=== PATIENT | female | born 1960 | race Caucasian/White ===

== ENCOUNTER → 2018-02-17 | Outpatient (CLI) | payer OTHER ==
--- NOTE | 2018-02-24 11:27 | MM ---
Reason for exam: screening (asymptomatic). Last mammogram was performed 7 years ago. History: Family history of breast cancer in aunt and premenopausal breast cancer in mother at age 45. Physical Findings: A clinical breast exam by your physician is recommended on an annual basis and results should be correlated with mammographic findings. MG 3D Screening Mammo W/Cad Bilateral CC and MLO view(s) were taken. XCCL view(s) were taken of the left breast. Prior study comparison: February 04, 2011, bilateral digital screening mammo w/CAD. February 21, 2009, left breast mammogram dig work up. There are scattered fibroglandular densities. New heterogeneous group of calcifications with some associated vague density lateral periareolar right breast. ASSESSMENT: Incomplete: need additional imaging evaluation, BI-RAD 0 RECOMMENDATION: Special view mammogram and ultrasound of the right breast. [facility] will attempt to contact patient to return for supplemental views and ultrasound.
== END | disposition home or self-care (01) ==
LOC: RADMAMWWP 10:36
PROVIDERS: ATTEND Internal Medicine
DX: Z12.31 Encounter for screening mammogram for malignant neoplasm of breast (principal); R92.8 Other abnormal and inconclusive findings on diagnostic imaging of breast
CPT/HCPCS: 77063; 77067

== ENCOUNTER → 2018-03-16 | Outpatient (CLI) | payer OTHER ==
--- NOTE | 2018-03-17 08:22 | MM ---
Reason for exam: additional evaluation requested from abnormal screening. Last mammogram was performed 1 month ago. History: Patient is postmenopausal. Family history of breast cancer in aunt and premenopausal breast cancer in mother at age 45. Took hormonal contraceptives beginning at age 17. Physical Findings: Nurse Summary: 1cm nodule in the right breast at 9 o'clock (nurse audie). MG 3D Work Up W/Cad RT Spot compression CC, spot compression LM, and LM view(s) were taken of the right breast. Prior study comparison: February 17, 2018, bilateral MG 3d screening mammo w/cad. February 04, 2011, bilateral digital screening mammo w/CAD. There are scattered fibroglandular densities. Large group of new heterogeneous calcifications anterior lower outer quadrant right breast. Palpable marker near this location. These results were verbally communicated with the patient and result sheet given to the patient on 03/16/18. ASSESSMENT: Incomplete: need additional imaging evaluation, BI-RAD 0 RECOMMENDATION: Ultrasound of the right breast.
--- NOTE | 2018-03-17 08:25 | USB ---
Reason for exam: additional evaluation requested from abnormal screening. History: Patient is postmenopausal. Family history of breast cancer in aunt and premenopausal breast cancer in mother at age 45. Took hormonal contraceptives beginning at age 17. US Breast Workup RT Right complete breast ultrasound includes all four quadrants, the retroareolar region and axilla. Finding demonstrates a 0.4 x 0.3 x 0.6cm mixed lesion at 8 o'clock, corresponds to the palpable site for which a biopsy is recommended and a 0.8 x 0.9 x 0.8cm calcifications at 7 o'clock likely the lower outer quadrant mammogram calcifications. This should be confirmed with post biopsy mammogram with clip placement and specimen mammogram. These results were verbally communicated with the patient and result sheet given to the patient on 03/16/18. ASSESSMENT: Suspicious, BI-RAD 4 RECOMMENDATION: Surgical consultation and ultrasound core biopsy of the right breast ([address] sites). [address] Sanedrs with mammographic findings and has scheduled an appointment for the patient for 04/03/18 at 8:[address] Estes. Biopsy scheduled for 04/03/18 at 11:30. PRELIMINARY REPORT CALLED AND FAXED TO DR. ESTES ON 03/17/18. [facility]
== END | disposition home or self-care (01) ==
LOC: RADMAMWWP 13:41
PROVIDERS: ATTEND Internal Medicine
DX: R92.8 Other abnormal and inconclusive findings on diagnostic imaging of breast (principal)
CPT/HCPCS: 77061; 77065

== ENCOUNTER → 2018-04-03 | Outpatient (CLI) | payer OTHER ==
[2018-04-03 08:33] VITALS: BP 147/84; PULSE 84; RESP 18; TEMP 98; BMI 26.6
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
== END ==
LOC: WWCWWP 08:11
PROVIDERS: ATTEND Surgery
DX: Z53.9 Procedure and treatment not carried out, unspecified reason (principal)

== ENCOUNTER → 2018-04-03 | Day surgery (SDC) | payer OTHER ==
[2018-04-03 10:54] VITALS: BP 124/79; PULSE 94; RESP 16; TEMP 98; BMI 26.6
--- NOTE | 2018-04-03 13:08 | USB ---
Discontinued ultrasound guided biopsy right breast HISTORY: 8 mm 8:00 lesion. COMPARISON: 03/16/2018 The region in question at the right 8:00 position was imaged by the undersigned in the lesion in ques tion could not be reproduced. Therefore ultrasound guided core biopsy was discontinued. Microcalcifications right breast should be sampled with stereotactic core biopsy and this was discuss ed with the patient's physician. IMPRESSION: 1. Suspicious BI-RADS 4 Recommendation: 1. Stereotactic core biopsy right breast microcalcifications.
== END | disposition home or self-care (01) ==
LOC: RADUSWWP 08:13
PROVIDERS: ATTEND Surgery
DX: N63.10 Unspecified lump in the right breast, unspecified quadrant (principal); Z53.8 Procedure and treatment not carried out for other reasons; Z88.0 Allergy status to penicillin

== ENCOUNTER → 2018-04-16 | Day surgery (SDC) | payer OTHER ==
[2018-04-16 11:35] VITALS: RESP 16; BMI 26.6
--- NOTE | 2018-04-16 13:04 | P.PCN ---
Date of Procedure: 04/16/18 Preoperative Diagnosis: Mammographic abnormality right breast Postoperative Diagnosis: same Procedure(s) Performed: Stereotactic biopsy right breast Anesthesia: local Surgeon: Yesi Estes Pathology: other (breast tissue) Condition: stable Disposition: same day Indications for Procedure: Microcalcifications of concern 8 o'clock position right breast Description of Procedure: The patient is a 58-year-old white female who presents with a mammographic abnormality in the right breast for which stereotactic core biopsy was recommended. This is in the 8 o'clock position. Risks and benefits of the procedure were discussed with the patient and she wishes to proceed. The patient was brought to the stereotactic core biopsy room. She was positioned on the low rad table such that the lesion would be approached from a lateral to medial approach. The lesion was targeted. Stereo pair radiographs were obtained. The lesion was then targeted and the correct target transmitted to the lower rad table. The breast was prepped using Betadine. 1% lidocaine was used to anesthetize the area of the skin. Approximately 20 mL were utilized. The initial targeting needed to be repeated. This was performed. After retargeting the skin was again anesthetized using 1% lidocaine, 5 cc. The needle was driven to the new coordinates. Pre-and post-fire films were obtained. At this point we determined to obtain a sample. This was done using a 19-gauge vacuum assisted rotating core biopsy needle. Radiograph of the specimen revealed that the microcalcifications of concern had been sampled. A secure raad top hat Clip was deployed at the site. The patient tolerated the procedure in stable condition. Specimen was sent to pathology. The patient will follow up in 1 week.
[2018-04-16 13:42] VITALS: BP 134/79; PULSE 76; TEMP 98.1
--- NOTE | 2018-04-16 14:07 | MM ---
EXAMINATION TYPE: MG stereo VAD BX RT DATE OF EXAM: 04/16/2018 COMPARISON: 03/16/2018 CLINICAL HISTORY: Indeterminate calcifications for which stereotactic guided biopsy of the right [address] was recommended. TECHNIQUE: Stereotactic guided core biopsy of right breast. FINDINGS: The procedure of stereotactic guided core biopsy was explained to the patient. Benefits, a lternatives, and risks were discussed. An informed consent was then obtained. Preprocedural timeout was performed. The shortness pathway for biopsy was chosen. Shortness pathway was lateral to medial approach. Jj rockwell rformed the localization, then surgeon, Dr. Luiz Rodriguez performed the remainder of the procedure. A v acCalixm assisted biopsy gun was used to obtain multiple core samples. The patient tolerated the procedure well without any immediate complication. The patient was kept in the radiology department for short stay after the procedure and then discharged home in stable condi tion. Targeted calcifications are identified in specimen mammogram. Post biopsy mammogram shows the clip to appear in satisfactory position relative to the targeted area of concern on the preprocedure images. IMPRESSION: SUCCESSFUL, UNCOMPLICATED STEREOTACTIC GUIDED CORE BIOPSY OF A 1.0 CM GROUP OF CALCIFICATIONS IN THE LOWER OUTER QUADRANT OF THE RIGHT BREAST AT ANTERIOR DEPTH, FULL PATHOLOGY RESULTS TO FOLLOW.
== END | disposition home or self-care (01) ==
LOC: RADMAMWWP 10:39
PROVIDERS: ATTEND Surgery
DX: D05.11 Intraductal carcinoma in situ of right breast (principal)
CPT/HCPCS: 88305; 19081; A4648; J2001

== ENCOUNTER → 2018-04-23 | Outpatient (CLI) | payer OTHER ==
[2018-04-23 12:32] VITALS: BP 141/67; PULSE 84; RESP 18; TEMP 97.3; BMI 25.8
--- NOTE | 2018-04-23 13:01 | P.PN ---
Progress Note - Text Progress Note Date: 04/23/18 The patient is a 58-year-old white female who is status post stereotactic [place] [id number]. Pathology revealed ductal carcinoma in situ, high-grade with comedo necrosis. The patient's radiograph was reviewed in the area of concern is approximately 2-3 cm in size. After discussion with the patient and her daughter treatment options were given. The patient has very large breasts which are triple D. The patient has had several back surgeries related to back pain. The lesion is located in some proximity to the nipple areolar complex. We have discussed the option of a lumpectomy and radiation therapy, however the patient and her daughter wish the patient to undergo a mastectomy with reconstruction. Additionally secondary to the large size of the breast they wished the contralateral breast to be removed at the same time. The patient does have a positive family history of breast cancer as well with her mother. She of breast cancer. I have discussed lumpectomy with radiation therapy versus mastectomy plus or minus immediate reconstruction. I've also discussed sentinel node biopsy plus or minus axillary node dissection. The patient and her daughter understand and they have opted for bilateral mastectomy with immediate reconstruction and right breast sentinel node biopsy possible axillary node dissection. Physical exam: Lungs: Clear Heart: Regular rate and rhythm Inspection of the core biopsy site reveals it to be mild ecchymosis no evidence of infection clean and dry Impression: 1. 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 Very large bilateral breast triple D 3. Back pain Plan: 1. Bilateral mastectomy with immediate reconstruction 2. Right sentinel node biopsy possible axillary node dissection 3. A plane with Dr. Coy 4. Presented at tumor board Cc: Dr. Sanders
== END ==
LOC: WWCWWP 04-03 10:21
PROVIDERS: ATTEND Surgery
DX: D05.11 Intraductal carcinoma in situ of right breast (principal)

== ENCOUNTER → 2018-05-18 | Outpatient (CLI) | payer OTHER | LOC: LABPAT 10:56 | PROVIDERS: ATTEND Internal Medicine | DX: Z01.818 Encounter for other preprocedural examination (principal) | CPT/HCPCS: 93005 ==

== ENCOUNTER → 2018-05-22 | Outpatient (CLI) | payer MEDICARE, OTHER ==
[~2018-05-22] MED LIST: REGADENOSON 0.4 MG/5 ML SYRINGE IV ONE
--- NOTE | 2018-05-22 12:06 | EST ---
EXERCISE STRESS DATE OF SERVICE: 05/22/2018 AGE: 58 SEX: Female HT: 5'8" WT: 180 pounds PROTOCOL: Lexiscan STAGE: DURATION OF EXERCISE: HEART RATE REST: 66 BLOOD PRESSURE REST: 121/73 MAXIMUM HEART RATE ACHIEVED: 107 MAXIMUM BLOOD PRESSURE: 132/70 85% MPHR: 100% MPHR: METS: INDICATIONS: Chest pain. CLINICAL INFORMATION: STRESS DATA: Pretesting physical examination showed a heart rate of 66, pressure 121/73 mmHg. Baseline EKG showed sinus mechanism and.4 mg of Lexiscan given over seconds per protocol. Max heart rate was 107 beats per minute and maximum pressure was 132/70 mmHg. Clinically the patient did not have any symptoms of chest pain or discomfort and the EKG did not show any significant ST or T-wave abnormalities concerning for ischemia. CONCLUSION: 1. Nondiagnostic electrocardiogram stress testing in response to Lexiscan. 2. Please follow up on portion on separate report from the radiology department. MMODL / IJN: [id number] /
--- NOTE | 2018-05-25 11:01 | NM ---
EXAMINATION TYPE: NM stress Lexiscan tetrofosmin DATE OF EXAM: 05/25/2018 COMPARISON: Prior nuclear medicine Cardiolite study May 24, 2011. HISTORY: Abnormal EKG per order. History of tobacco use quit 2 years ago, family history of heart dis ease, and history of hypercholesteremia. Presurgical study. TECHNIQUE: After the intravenous administration of 10.7 mCi Tc 99m Tetrofosmin resting SPECT images acquired 60 minutes post injection. The patient received 0.4mg Lexiscan, 25.3 mCi Tc 99m Tetrofosmin - Stress images obtained 35 minutes post injection FINDINGS: Review of stress and rest SPECT images demonstrates no distinct perfusion abnormality. Gated analysi s shows normal wall motion with an estimated left ventricular ejection fraction of 65 %. IMPRESSION: No scintigraphic evidence for reversible ischemia.
== END | disposition home or self-care (01) ==
LOC: RADNMMAIN 08:21
PROVIDERS: ATTEND Internal Medicine
DX: R94.31 Abnormal electrocardiogram [ECG] [EKG] (principal)
CPT/HCPCS: 93017; 78452; J2785

== ENCOUNTER 2018-05-26 06:54 | Inpatient (IN) | payer MEDICARE ==
[~2018-05-26 06:54] MED LIST changes: +MIDAZOLAM (PF) 2 MG/2 ML VIAL IV PRN; +Pre Op ABX Message 1 EACH MISC MISCELLANE ONE; -REGADENOSON 0.4 MG/5 ML SYRINGE IV ONE
[2018-05-26] MEDS ORDERED: ALPRAZolam 0.25 MG TAB PO ONE (07:15)
[2018-05-26] MEDS ORDERED: LIDOCAINE 1% 20 ML VIAL (10MG/ML) FOR IV START INTRADERMA ONE (07:33)
[2018-05-26] MEDS: LACTATED RINGERS 1,000 ML IV SCH ×2 (07:33→09:03)
[2018-05-26] MEDS: SCOPOLAMINE 1.5MG/72HR PATCH TRANSDERM ONE ×2 (07:35→14:56)
[2018-05-26] MEDS: ONDANSETRON 4 MG/2 ML VIAL IVP ONE ×3 (08:20→14:56)
[2018-05-26] MEDS: DEXAMETHASONE SOD PHOSPHATE 10 MG/ML 1 ML VIAL IV ONE ×2 (08:20→14:55)
[2018-05-26] MEDS ORDERED: LIDOCAINE 1% INJ 10MG/ML (20 ML MDV) SQ ONE ×2 (08:39→09:45)
[2018-05-26] MEDS ORDERED: CLINDAMYCIN 600 MG in DEXTROSE 5% IN WATER 50 ML IVPB STA ×2 (08:53)
[2018-05-26] MEDS: HEPARIN SODIUM,PORCINE 5,000 UNIT/ML 1 ML VIAL IV STA ×2 (08:58→14:56)
[2018-05-26] MEDS ORDERED: KETAMINE 10 MG/ML 20 ML VIAL ONE (08:59)
[2018-05-26] MEDS ORDERED: fentaNYL (PF) 50 MCG/ML 2 ML AMP ONE (08:59)
[2018-05-26] MEDS ORDERED: ePHEDrine SULFATE/0.9% NACL/PF 50 MG/5 ML SYRINGE IV ONE (08:59)
[2018-05-26] MEDS ORDERED: PROPOFOL 10 MG/ML 20 ML VIAL IV ONE (08:59)
[2018-05-26] MEDS ORDERED: LIDOCAINE 1% INJ 10MG/ML (20 ML MDV) ONE (08:59)
[2018-05-26] MEDS ORDERED: SUCCINYLCHOLINE CHLORIDE 100 MG/5 ML SYR IV ONE (08:59)
[2018-05-26] MEDS ORDERED: MIDAZOLAM 2 MG/2 ML VIAL ONE (08:59)
[2018-05-26] MEDS ORDERED: HEPARIN SODIUM,PORCINE 5,000 UNIT/ML 1 ML VIAL SQ ONE (09:11)
--- NOTE | 2018-05-26 09:13 | P.NAPBC ---
NAPBC Queries - NAPBC Queries Was patient's case review presented at [facility] tumor board? If no, comment.: Yes Was patient's pathology reviewed at [facility]? If no, comment.: Yes Was breast conservation surgery offered? If no, comment.: Yes Was sentinel node biopsy offered? If no, comment.: Yes Was diagnosis confirmed by percutaneous core biopsy? If no, comment.: Yes If mastectomy patient, was a preop referral to a reconstructive surgeon offered? : Yes Clinical Stage: [id number]
--- NOTE | 2018-05-26 09:20 | NM ---
EXAMINATION TYPE: NM sentinel node injection DATE OF EXAM: 05/26/2018 COMPARISON: NONE HISTORY: Right-sided breast cancer. TECHNIQUE AND FINDINGS: The procedure of sentinel lymph node injection was explained to the patient. The benefits, alternatives, and risks were discussed. An informed consent was then obtained. Overlying skin is cleaned with sterile alcohol. Following this, 540 uCi Tc99m Tilmanocept was inject ed in the upper outer aspect of the right nipple intradermally. The patient tolerated the procedure well without any immediate complication. The patient was kept in the radiology department for short stay after the procedure and then taken to surgery for surgical p rocedure what is presumed intraoperative gamma probe will be used for sentinel lymph node detection. IMPRESSION: Right breast radiotracer injection for sentinel node localization as above.
[2018-05-26] MEDS ORDERED: LACTATED RINGERS 1,000 ML IV ONE ×2 (10:30→13:14)
[2018-05-26] MEDS ORDERED: NALOXONE 0.4 MG/ML 1 ML VIAL IV PRN (11:21)
[2018-05-26] MEDS ORDERED: HYDROmorphone 1 MG/ML 1 ML SYRINGE IV PRN (11:21)
[2018-05-26] MEDS ORDERED: ONDANSETRON 4 MG/2 ML VIAL IVP PRN (11:21)
[2018-05-26] MEDS ORDERED: CALCIUM CARBONATE 500 MG CHEWABLE PO PRN (11:21)
--- NOTE | 2018-05-26 11:21 | P.OP ---
Date of Procedure: 05/26/18 Preoperative Diagnosis: Right breast ductal carcinoma in situ, very large breast with ptosis, back pain Postoperative Diagnosis: Same Procedure(s) Performed: Right breast sentinel node biopsy, bilateral mastectomy via Greco pattern reduction incisions Implants: As per plastic surgery Anesthesia: ANGELA Surgeon: Yesi Estes Engagement Specialist #1: Jian Markham Estimated Blood Loss (ml): 100 IV fluids (ml): 900 Pathology: other ([place] node right, bilateral breast) Condition: stable Disposition: PACU Indications for Procedure: Right breast ductal carcinoma in situ, patient has very large breasts with back pain and opted for bilateral mastectomy with reconstruction Operative Findings: Large ptotic breast Description of Procedure: Tamica is a 58-year-old white female who has a biopsy-proven right breast ductal carcinoma in situ. The patient has very large breasts with back pain and has opted for bilateral mastectomy with immediate reconstruction. She was given the option of lumpectomy and radiation therapy, and she was also given the option of a left breast reduction mammoplasty however she is very insistent that she wants bilateral mastectomy with reconstruction. The patient presented in the morning at the radiation Department and had injection for sentinel node. She then came to the operating room. In the operating room the right axilla and both breasts were prepped and draped in a sterile fashion. The right breast was approached initially. Using the neoprobe the area of greatest radioactivity was identified in the axilla. An incision was made at this site and carried down to the area of increased radioactivity. Using the Harmonic scalpel the area was excised. The 10 second count on this was approximately 4400. The background count of the axilla was 1 at 10 seconds. The specimen was sent to pathology and frozen section did not reveal any cancer. 2 lymph nodes were identified in the specimen. The additional axillary tissue which had been removed was sent for permanent evaluation. After assured that hemostasis was attained the wound was irrigated. A YONATAN drain was placed and secured using a nylon suture. Following this the right mastectomy was performed. The patient was seen preoperatively by plastic surgeon Dr. Markham and the sharpe for reduction mammoplasty were placed on both breasts. Using a #10 scalpel the superior flap incision was made. Following this using a scissors blunt and sharp dissection was used to develop the superior flap. Hemostasis was attained using the electrocautery as well as the Harmonic scalpel. Following this the inferior incision was made. This was carried down to the chest wall using electrocautery device. The breast was removed from medial to lateral being sure to maintain hemostasis using the electrocautery device as well as the Harmonic scalpel. Several larger vessels were clamped and ligated. Superior suture was placed and a lateral suture was placed for orientation. After this had been performed the wound was well irrigated and there was no evidence of any active bleeding. The wound was packed and the left side was approached. The surgeon's gowns and gloves were changed as were instruments. The left breast skin incisions were made using a #10 scalpel. The superior flap was then developed using scissors with blunt and sharp dissection. Hemostasis was attained using electrocautery as well as the Harmonic scalpel. Following this inferior incision was made. This was carried down the chest wall using the electrocautery device. The breast was removed from medial to lateral being sure to maintain hemostasis using electrocautery device as well as the Harmonic scalpel. Several larger vessels were clamped and ligated. The breast was oriented using a short superior suture, and a long lateral suture. After this was performed performed the wound was well irrigated and there was no evidence of any active bleeding. The wound was packed. Dr. Markham then proceeded to do the reconstruction.
[2018-05-26] MEDS: HYDROmorphone 0.5 MG/0.5 ML SYRINGE IVP PRN ×4 (13:37→13:53)
[2018-05-26] MEDS ORDERED: diphenhydrAMINE 50 MG/ML 1 ML VIAL IVP ONE (13:51)
--- NOTE | 2018-05-26 14:18 | OP ---
OPERATIVE REPORT DATE OF SURGERY: 05/26/2018. SURGEON: Jian Markham MD PREOPERATIVE DIAGNOSES: 1. Acquired loss right breast. 2. Acquired loss left breast. 3. Bilateral grade 3 breast ptosis with macromastia. 4. Breast cancer, right breast. POSTOPERATIVE DIAGNOSES: 1. Acquired loss right breast. 2. Acquired loss left breast. 3. Bilateral grade 3 ptosis with macromastia. 4. Breast cancer, right breast. OPERATIVE PROCEDURES: 1. Immediate reconstruction right breast following mastectomy with insertion of tissue gas plant worker subsequent outpatient expansion. 2. Immediate reconstruction left breast following mastectomy with insertion of tissue gas plant worker and subsequent outpatient expansion. 3. Implantation of reconstructive graft for right and left breast reconstruction. 4. Car Construction Superintendent surgeon for right mastectomy. 5. Car Construction Superintendent surgeon for left mastectomy. OPERATIVE INDICATIONS: The patient is a 58-year-old female with a diagnosis of breast cancer, right breast. She is referred to my care for breast reconstruction. The patient has large ptotic pendulous breasts bilaterally and has had a long history of back and neck pain including surgery for those conditions. She was seen and evaluated in my office in consultation and has elected to proceed with immediate breast reconstruction following her mastectomy procedures, but would also desire smaller breasts. After a long consultation with the patient, she understands a skin reduction surgery will be required to optimize her breast reconstruction under her circumstances, I have coordinated the patient's surgery with her surgical oncologist, Dr. Estes, and will assist with the right and left-sided mastectomy as Greco pattern reductions will be drawn for the skin reduction pattern, the patient understands breast reconstructive surgeries staged technique, multiple surgeries may be required. In addition, there are potential risks and complications related to today's surgery including, but not limited to hematoma, seroma, skin necrosis, wound healing problems, among others. She has requested I perform the surgery. OPERATIVE PROCEDURE: The patient is seen in the preoperative. While standing surgical markings made. Procedure reviewed. All questions answered. She was transported to operating room where she was placed in supine position. The patient was prepped and draped in standard fashion. Dr. Estes then proceeded with the right sentinel lymph node excision. Once that was completed, I entered the procedure. I assisted Dr. Estes with the right-sided mastectomy through the Greco skin reduction pattern as well as left- sided mastectomy using the Greco skin reduction pattern. The patient's sentinel lymph nodes were negative for cancer. With the mastectomy lymph node procedures completed, Dr. Estes exited the procedure and continued with the breast reconstruction procedures. Details of the mastectomy procedures will be dictated by Dr. Otto Rodriguez. The following will describe the reconstructive procedure. Beginning on the right side with fresh instruments, the pectorals major muscle was identified on the lateral aspect where it joined the chest wall. Loose areolar tissue divided allowing entry into the potential plane between the pectorals major minor muscles were bluntly developed. Medial attachment fibers of the pectorals major muscle to ribs with released with cautery but not sternal attachments. All inferior attachments of the ribs were released with cauter. To obtain sufficient muscle tissue coverage required recruitment of additional muscle groups. Inferomedially, rectus abdominis muscle and fascia, inferolaterally external abdominal oblique muscle fascia and laterally serrated anterior muscle fascia were all elevated off the chest wall through this technique with cautery. Hemostasis maintained with cautery. Once a sufficient size submuscular reconstructive pocket was created, dissection stopped. Irrigation was performed. Hemostasis was excellent. The cavity was packed with moist laparotomy sponges. Attention was turned toward the left side where the pectorals major muscle was identified at the lateral aspect where it joined the chest wall. Loose areolar connective tissue divided with cautery allowing entry into the potential plane between the pectorals major minor muscles was bluntly developed. Medial attachment fibers of the pectorals major muscles released where the join the ribs but not sternal attachments. Inferiorly, all attachments to the ribs released. Again, additional muscle tissue was recruited for coverage and for the reconstructive purpose. Inferomedially, rectus abdominis muscle and fascia, inferolaterally external abdominal oblique muscle fascia and laterally serrated anterior muscle fascia were all elevated with cautery through this approach. Hemostasis maintained with cautery. Once sufficient size submuscular reconstructive pocket was created, dissection stopped, irrigation performed, hemostasis was excellent. The cavities were sized for symmetry and minor adjustments made to each side to obtain optimized symmetry. Once this was completed, gloves changed, a tissue gas plant worker was opened on the field. Both tissue expanders were from the [employer], reference number [id number]. The right- sided device serial number was [id number] and the left-sided device serial number was [id number]. Both devices had a volume of 500 mL. The right-sided device was opened first and only handled by the surgeon. All air is extracted, 50 mL 0.9 normal saline instilled, it is inserted directly in the reconstructive submuscular pocket and orientation ensured under direct vision. The left-sided device was opened in same fashion. Again, removing all air, rinsing the device with saline, instilling 50 mL 0.9 normal saline, inserted in the reconstructive back pocket and assuring proper orientation by direct vision. The muscle flap tissue on each side had areas of significant thinness, attenuation and some minor tears that had been repaired during the dissection with 3-0 Vicryl. To buttress this muscle tissue as well allowing for optimizing the fill with the surgery today. SurgiMend reconstructive graft was opened on the field, 2 pieces, each measuring 10 x 15 cm thin and fenestrated. The graft tissue was revitalized at room temperature saline. Once ready, inserted in the reconstructive field on the right and left side, oriented grafts in inferior sling technique, placed deep to the muscle flap tissue, but above the implants and covering the areas where the muscle was thin and where small tears had been repaired. The SurgiMend was inset to the muscle flap tissues, interrupted short running 3-0 Vicryl on both sides. Complete coverage was obtained, additional 100 mL, 0.9 normal saline instilled in the each tissue gas plant worker making the final volume 150 mL. The skin reduction incisions performed for the mastectomy were now closed, first placing a central suture that secured the superior medial and superior lateral to the inferior midline using inverted interrupted 4 -0 Monocryl on both sides and then completed the skin closure. The deep dermal layer using inverted interrupted 4-0 Monocryl throughout. The superficial dermis and epidermis was closed in all areas using short running 5-0 Prolene. The drains that had been inserted prior to closing dermis on the right above the muscle flap but below the skin flap area were now connected to closed bulb suction. These drains were sutured in place with 2-0 Prolene. Surgical field was cleansed with saline, dried and postoperative bandages placed using sterile 1 inch paper tape. The overall suture repairs followed by Kerlix squares secured with 3 Medipore tape. The patient was then awakened from anesthetic, extubated, and transferred to recovery room in good condition, stable vital signs. The estimated blood loss of the reconstructive procedure was 50 mL. There were no complications. MMODL / IJN: [id number] / SHRUTI
[2018-05-26] MEDS ORDERED: CLINDAMYCIN 600 MG in DEXTROSE 5% IN WATER 50 ML IVPB SCH ×2 (16:00)
[2018-05-26] MEDS: CLINDAMYCIN 600 MG in DEXTROSE 5% IN WATER 50 ML IVPB SCH ×2 (16:04)
[2018-05-26] MEDS: DEXTROSE 5%-0.45% NACL 1,000 ML IV SCH (16:08)
[2018-05-26] MEDS: HYDROmorphone 1 MG/ML 1 ML SYRINGE IVP PRN ×2 (16:15→20:34)
[2018-05-26] MEDS: HYDROcodone/APAP 5-325MG 1 EACH TAB PO PRN ×2 (17:37→22:43)
[2018-05-26 17:51] VITALS: BMI 27.8
[2018-05-26] MEDS: HEPARIN SODIUM,PORCINE 5,000 UNIT/ML 1 ML VIAL SQ SCH (20:35)
[2018-05-26 23:43] LABS: HCT 34.7 % (34.0-46.0); HGB 11.7 gm/dL (11.4-16.0); MCHC 33.7 g/dL (31.0-37.0); MCV 103.9 fL (80.0-100.0); Macrocytosis Moderate; Mean Platelet Volume 8.2; Platelet Count 139 k/uL (150-450); RBC 3.34 m/uL (3.80-5.40); RDW 14.5 % (11.5-15.5); WBC 12.8 k/uL (3.8-10.6)
[2018-05-26] MEDS ORDERED: SODIUM CHLORIDE 0.9% 1,000 ML IV ONE (23:51)
[2018-05-27] MEDS: CLINDAMYCIN 600 MG in DEXTROSE 5% IN WATER 50 ML IVPB SCH ×2 (00:18)
[2018-05-27] MEDS: HYDROmorphone 1 MG/ML 1 ML SYRINGE IVP PRN ×6 (01:56→20:19)
[2018-05-27] MEDS: DEXTROSE 5%-0.45% NACL 1,000 ML IV SCH ×2 (01:57→11:52)
[2018-05-27] MEDS: HYDROcodone/APAP 5-325MG 1 EACH TAB PO PRN ×3 (03:49→17:31)
[2018-05-27 06:49] LABS: Basophils % (A) 0 %; Eosinophils # (A) 0.1 k/uL (0-0.7); Eosinophils % (A) 1 %; HCT 36.7 % (34.0-46.0); Hypochromasia Marked; Lymphocytes # (A) 1.5 k/uL (1.0-4.8); Lymphocytes % (A) 14 %; MCH 32.7 pg (25.0-35.0); MCV 108.7 fL (80.0-100.0); Macrocytosis Marked; Mean Platelet Volume 7.4; Monocytes # (A) 0.4 k/uL (0-1.0); Monocytes % (A) 4 %; Neutrophils # (A) 8.3 k/uL (1.3-7.7); Neutrophils % (A) 80 %; Platelet Count 147 k/uL (150-450); RBC 3.37 m/uL (3.80-5.40); RDW 14.6 % (11.5-15.5); WBC 10.4 k/uL (3.8-10.6)
[2018-05-27] MEDS: HEPARIN SODIUM,PORCINE 5,000 UNIT/ML 1 ML VIAL SQ SCH ×2 (09:16→20:18)
[2018-05-27] MEDS ORDERED: ALPRAZolam 0.25 MG TAB PO PRN (10:37)
[2018-05-27] MEDS ORDERED: IPRATROPIUM-ALBUTEROL 3 ML NEB INHALATION PRN (10:39)
--- NOTE | 2018-05-27 10:45 | P.PN ---
Subjective Progress Note Date: 05/27/18 Principal diagnosis: PosPost op day #1 bilateral mastectomies with immediate reconstruction, right sentinel node biopsy Adrianna is a 58-year-old white female who is status post bilateral mastectomies via a Greco incision reduction pattern. She underwent immediate reconstruction with subpectoral implants. She underwent a right sentinel node biopsy. Postoperatively she is doing well. There was some concern last night that she was not urinating well however she was given a fluid bolus and is now urinating without difficulty. She is not complaining of any nausea. She does complain of discomfort at the surgical sites. Her hemoglobin is 11 this morning, her YONATAN drainage is serous bilaterally. Her white count is 10.4. Objective - Vital Signs Vital signs: Vital Signs Temp 98.1 F 05/27/18 07:57 Pulse 78 05/27/18 07:57 Resp 20 05/27/18 07:57 BP 108/63 05/27/18 07:57 Pulse Ox 95 05/27/18 07:57 Intake & Output 05/26/18 05/27/18 05/27/18 18:59 06:59 18:59 Intake Total 2154 Output Total 575 1143 343 Balance 1579 -1143 -343 Intake: IV 2154 Output: Drainage 125 193 43 Left Breast 45 85 10 Right Arm 0 10 3 Right Breast 80 98 30 Urine 300 950 300 Estimated Blood Loss 150 Other: Voiding Method Toilet - Constitutional General appearance: Present: average body habitus - EENT Eyes: Present: EOMI ENT: Present: hearing grossly normal - Respiratory Respiratory: bilateral: CTA - Cardiovascular Rhythm: regular Heart sounds: normal: S1, S2 - Gastrointestinal General gastrointestinal: Present: soft - Integumentary Integumentary Comment(s): Incision clean and dry bilaterally YONATAN drain thin serous output No evidence of any hematoma Some ecchymosis at the left medial skin flap - Psychiatric Psychiatric: Present: A&O x's 3, appropriate affect, intact judgment & insight - Labs CBC & Chem 7: 05/27/18 06:22 05/26/18 07:35 Labs: Abnormal Lab Results - Last 24 Hours (Table) 05/26/18 05/27/18 Range/Units 23:27 06:22 WBC 12.8 H (3.8-10.6) k/uL RBC 3.34 L 3.37 L (3.80-5.40) m/uL Hgb 11.0 L (11.4-16.0) gm/dL MCV 103.9 H 108.7 H (80.0-100.0) fL MCHC 30.0 L (31.0-37.0) g/dL Plt Count 139 L 147 L (150-450) k/uL Neutrophils # 8.3 H (1.3-7.7) k/uL Assessment and Plan Assessment: Impression: 1. Patient postop day #1 bilateral metastases mastectomy with subpectoral implant immediate reconstruction,right sentinel node biopsy 2. Patient continues to have some chest wall discomfort related to the recent surgery Plan: 1. Continue present therapy 2. Plan discharge home tomorrow 3. Await medicine consult
[2018-05-27] MEDS: GABAPENTIN 300 MG CAP PO SCH (11:07)
[2018-05-27] MEDS: PANTOPRAZOLE 40 MG/10 ML VIAL IVP SCH (11:36)
[2018-05-27] MEDS: ESCITALOPRAM 10 MG TAB PO SCH (11:43)
[2018-05-27] MEDS: TOPIRAMATE 25 MG TAB PO SCH (11:51)
[2018-05-27] MEDS: NON-FORMULARY DRUG (Vitamin B Complex [Vitamin B Complex] 1 EACH) PO SCH (11:55)
[2018-05-27] MEDS: IPRATROPIUM-ALBUTEROL 3 ML NEB INHALATION SCH ×3 (11:58→20:42)
[2018-05-27] MEDS: FERROUS SULFATE 325 MG TAB PO SCH (12:53)
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
[2018-05-27] MEDS: FAMOTIDINE 20 MG/2 ML VIAL IV SCH (20:18)
[2018-05-27] MEDS: FORMOTEROL FUMARATE 20 MCG/2 ML NEBU INHALATION SCH (20:42)
[2018-05-27] MEDS ORDERED: GABAPENTIN 300 MG CAP PO SCH (21:00)
[2018-05-27] MEDS ORDERED: HEPARIN SODIUM,PORCINE 5,000 UNIT/ML 1 ML VIAL SQ SCH (21:00)
[2018-05-27] MEDS ORDERED: ATORVASTATIN 10 MG TAB PO SCH (21:00)
[2018-05-28] MEDS: HYDROcodone/APAP 5-325MG 1 EACH TAB PO PRN ×3 (03:48→13:08)
[2018-05-28] MEDS: DEXTROSE 5%-0.45% NACL 1,000 ML IV SCH ×2 (03:49→06:17)
[2018-05-28] MEDS: IPRATROPIUM-ALBUTEROL 3 ML NEB INHALATION SCH ×2 (08:55→12:30)
[2018-05-28] MEDS: FORMOTEROL FUMARATE 20 MCG/2 ML NEBU INHALATION SCH (08:55)
--- NOTE | 2018-05-28 08:55 | P.PN ---
Subjective Progress Note Date: 05/28/18 Principal diagnosis: PosPost op day #2 bilateral mastectomies with immediate reconstruction, right sentinel node biopsy Adrianna is a 58-year-old white female who is status post bilateral mastectomies via a Greco incision reduction pattern. She underwent immediate reconstruction with subpectoral implants. She underwent a right sentinel node biopsy. Postoperatively she is doing well. She is not complaining of any nausea. She does complain of discomfort at the surgical sites. YONATAN drainage is serous bilaterally. She is doing well at this time. Objective - Vital Signs Vital signs: Vital Signs Temp 98.5 F 05/28/18 03:46 Pulse 80 05/28/18 03:46 Resp 16 05/28/18 03:46 BP 120/68 05/28/18 03:46 Pulse Ox 94 L 05/28/18 03:46 Intake & Output 05/27/18 05/28/18 05/28/18 18:59 06:59 18:59 Intake Total 480 Output Total 1321 663 Balance -841 -663 Intake: Oral 480 Output: Drainage 146 163 Left Breast 58 65 Right Arm 8 8 Right Breast 80 90 Urine 1175 500 Other: Voiding Method Toilet - Constitutional General appearance: Present: average body habitus - EENT Eyes: Present: EOMI ENT: Present: hearing grossly normal - Respiratory Respiratory: bilateral: wheezing (inspiratory) - Cardiovascular Rhythm: regular Heart sounds: normal: S1, S2 - Psychiatric Psychiatric: Present: A&O x's 3, appropriate affect, intact judgment & insight - Additional findings Additional findings: Incisions bilateral clean and dry No evidence of any infection - Labs CBC & Chem 7: 05/27/18 06:22 05/26/18 07:35 Assessment and Plan Assessment: Impression: 1. Patient postop day #2 bilateral mastectomy with subpectoral implant immediate reconstruction,right sentinel node biopsy 2. Patient continues to have some chest wall discomfort related to the recent surgery, controlled with present pain medication 3. Inspiratory wheezing, the patient is treated for this as an outpatient Plan: 1. Continue present therapy 2. Plan discharge home if okay with medicine
[2018-05-28] MEDS ORDERED: NON-FORMULARY DRUG (Calcium/Magnesium/Zinc [Calcium-Magnesium-Zinc Tablet] 1 EACH) PO SCH (09:00)
[2018-05-28] MEDS ORDERED: CHOLECALCIFEROL 1,000 UNIT TAB PO SCH (09:00)
[2018-05-28] MEDS ORDERED: NON-FORMULARY DRUG (Omega-3 Fatty Acids [Omega-3] 1,000 MG) PO SCH (09:00)
[2018-05-28] MEDS ORDERED: LORATADINE 10 MG TAB PO SCH (09:00)
[2018-05-28] MEDS: PANTOPRAZOLE 40 MG/10 ML VIAL IVP SCH (09:02)
[2018-05-28] MEDS: FAMOTIDINE 20 MG/2 ML VIAL IV SCH (09:02)
--- NOTE | 2018-05-28 09:02 | P.DS ---
Providers Date of admission: 05-26-18 Expected date of discharge: 05/28/18 Attending physician: Jian Markham Consults: 05/26/18 11:28 Consult Physician Routine Consulting Provider: Alexey Sanders Consult Reason/Comments: medical managment Do you want consulting provider notified?: Yes 05/27/18 13:42 Consult Physician Routine Consulting Provider: Fuad Bnag Consult Reason/Comments: medical management/bi mastectomy with exanders Do you want consulting provider notified?: Already Contacted Primary care physician: [facility] Course: Adrianna is a 58 -year-old white female who is status post bilateral mastectomy with subpectoral reconstruction. She had a right breast ductal carcinoma in situ. The patient had very large breast with extreme back pain and chose to have bilateral mastectomies. The patient was given the option of reduction mammoplasty on the contralateral side but declined. The patient postoperatively is doing well. She is ready for discharge if okay with medicine. Plan - Discharge Summary Discharge Rx Participant: Yes New Discharge Prescriptions: No Action Albuterol Inhaler [Ventolin Hfa Inhaler] 1 - 2 puff INHALATION RT-Q6H PRN PRN Reason: Bronchospasm Umeclidinium Brm/Vilanterol Tr [Anoro Ellipta 62.5-25 Mcg INH] 1 puff INHALATION DAILY PRN PRN Reason: Dyspnea traMADol HCL [Ultram] 50 mg PO Q6HR PRN PRN Reason: pain Cetirizine HCl [Zyrtec] 10 mg PO DAILY Topiramate [Topamax] 25 mg PO DAILY Atorvastatin [Lipitor] 10 mg PO HS Gabapentin [Neurontin] 900 mg PO HS Escitalopram [Lexapro] 10 mg PO DAILY ALPRAZolam [Xanax] 0.25 mg PO DAILY PRN PRN Reason: Anxiety Vitamin B Complex 1 each PO DAILY [place]-3 Fatty Acids [[place]-3] 1,000 mg PO DAILY Ferrous Sulfate [Feosol] 325 mg PO DAILY Cholecalciferol [Vitamin D3] 5,000 unit PO DAILY Calcium/Magnesium/Zinc [Yeyxhem-Sbtppaqdm-Hctl Tablet] 1 each PO DAILY Gabapentin 600 mg PO 0900,1600 Discharge Medication List Albuterol Inhaler [Ventolin Hfa Inhaler] 1 - 2 puff INHALATION RT-Q6H PRN [History] Atorvastatin [Lipitor] 10 mg PO HS 03/19/18 [History] Cetirizine HCl [Zyrtec] 10 mg PO DAILY 03/19/18 [History] Gabapentin [Neurontin] 900 mg PO HS 03/19/18 [History] Topiramate [Topamax] 25 mg PO DAILY 03/19/18 [History] Umeclidinium Brm/Vilanterol Tr [Anoro Ellipta 62.5-25 Mcg INH] 1 puff INHALATION DAILY PRN 03/19/18 [History] traMADol HCL [Ultram] 50 mg PO Q6HR PRN 03/19/18 [History] ALPRAZolam [Xanax] 0.25 mg PO DAILY PRN 05/21/18 [History] Calcium/Magnesium/Zinc [[place]tywbajyj-[place] Tablet] 1 each PO DAILY 05/21/18 [History] Cholecalciferol [Vitamin D3] 5,000 unit PO DAILY 05/21/18 [History] Escitalopram [Lexapro] 10 mg PO DAILY 05/21/18 [History] Ferrous Sulfate [Feosol] 325 mg PO DAILY 05/21/18 [History] [place]-3 Fatty Acids [[place]-3] 1,000 mg PO DAILY 05/21/18 [History] Vitamin B Complex 1 each PO DAILY 05/21/18 [History] Gabapentin 600 mg PO 0900,1600 05/27/18 [History] Follow up Appointment(s)/Referral(s): Jian Markham MD [STAFF PHYSICIAN] - 1 Week [facility] [NON-STAFF] - 1-2 Days Yesi Estes MD [STAFF PHYSICIAN] - 1 Week Patient Instructions/Handouts: Pain Management (GEN), Safe Use of Narcotics (DC ), Safe Use of Opioids (DC), Breast Reconstruction With Implants and Expanders ( GEN), Mastectomy (GEN) Activity/Diet/Wound Care/Special Instructions: [place] 5/325mg One tablet orally every 4 to 6 hours as needed for pain. Script sent down to pharmacy to be filled. Home Health Care Discharge Disposition: HOME SELF-CARE
[2018-05-28] MEDS: ESCITALOPRAM 10 MG TAB PO SCH (09:16)
[2018-05-28] MEDS: GABAPENTIN 300 MG CAP PO SCH (09:17)
[2018-05-28] MEDS: TOPIRAMATE 25 MG TAB PO SCH (09:18)
[2018-05-28] MEDS: FERROUS SULFATE 325 MG TAB PO SCH (09:18)
[2018-05-28] MEDS: HEPARIN SODIUM,PORCINE 5,000 UNIT/ML 1 ML VIAL SQ SCH (09:19)
[2018-05-28] MEDS: NON-FORMULARY DRUG (Vitamin B Complex [Vitamin B Complex] 1 EACH) PO SCH (09:21)
[2018-05-28 12:49] VITALS: BP 122/71; PULSE 73; RESP 14; TEMP 97.4
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
== END 2018-05-28 14:27 | disposition home health service (06) | DRG 581 ==
LOC: OR 06:54 → 6PED 13:25 → OR 05-28 08:52 → 6PED 05-28 11:31
PROVIDERS: ADMIT Internal Medicine; ATTEND Plastic Surgery
PROC: 0HHV0NZ Insertion of Tissue Expander into Bilateral Breast, Open Approach (ICD-10-PCS; 2018-05-26)
PROC: 0HUV0KZ Supplement Bilateral Breast with Nonautologous Tissue Substitute, Open Approach (ICD-10-PCS; 2018-05-26)
PROC: 0HTV0ZZ Resection of Bilateral Breast, Open Approach (ICD-10-PCS; principal; 2018-05-26 08:30)
PROC: 07B50ZX Excision of Right Axillary Lymphatic, Open Approach, Diagnostic (ICD-10-PCS; 2018-05-26 08:30)
DX: D05.11 Intraductal carcinoma in situ of right breast (principal); G62.9 Polyneuropathy, unspecified; J45.909 Unspecified asthma, uncomplicated; E78.5 Hyperlipidemia, unspecified; M21.371 Foot drop, right foot; G43.909 Migraine, unspecified, not intractable, without status migrainosus; M79.7 Fibromyalgia; M19.90 Unspecified osteoarthritis, unspecified site; F32.9 Major depressive disorder, single episode, unspecified; M81.0 Age-related osteoporosis without current pathological fracture; N60.19 Diffuse cystic mastopathy of unspecified breast; N64.81 Ptosis of breast; N62 Hypertrophy of breast; F17.210 Nicotine dependence, cigarettes, uncomplicated; D72.829 Elevated white blood cell count, unspecified; Z79.899 Other long term (current) drug therapy; Z86.718 Personal history of other venous thrombosis and embolism; Z98.51 Tubal ligation status; Z96.652 Presence of left artificial knee joint; Z87.81 Personal history of (healed) traumatic fracture; Z90.49 Acquired absence of other specified parts of digestive tract; Z80.49 Family history of malignant neoplasm of other genital organs; Z80.3 Family history of malignant neoplasm of breast; Z80.9 Family history of malignant neoplasm, unspecified
CPT/HCPCS: 38792; 84132; 85025; 85027; 86850; 86900; 86901; 88307; 88309; 88331; 88341; 88342; 94640

== ENCOUNTER → 2018-06-05 | Outpatient (CLI) | payer MEDICARE ==
[2018-06-05 08:28] VITALS: BP 119/58; PULSE 94; RESP 18; TEMP 97.1; BMI 25.8
--- NOTE | 2018-06-05 08:53 | P.PN ---
Subjective Progress Note Date: 06/05/18 Principal diagnosis: post op bilateral mastectomy with reconstruction, and right SNB The patient is a 58-year-old white female who is status post bilateral mastectomy with immediate reconstruction and [id number]. Her pathology revealed right breast DCIS and 2 sentinel nodes were negative for metastatic disease the left breast was negative for malignancy. She is doing well at this time without any complications. She does continue to have some burning discomfort at the area of the incisions. She has used approximately 20 Novinger and has requested another prescription for Novinger at this time. She is using it only as needed. The patient's YONATAN drain output is serous and remains greater than 40 mL from each side. The patient states that last night she noted a low-grade fever of 100.3, today her temperature is 97.1. She did not have any chills. The only reason that the patient took her temperature is that a home healthcare nurse had noted that it was low-grade at 99 several days prior and she was following this. She does not have any clinical evidence of infection. Her tumor is Tis N0 M0 ER/MS negative Grade3. Objective - Vital Signs Vital signs: Vital Signs Temp 97.1 F L 06/05/18 08:20 Pulse 94 06/05/18 08:20 Resp 18 06/05/18 08:20 BP 119/58 06/05/18 08:20 Pulse Ox 97 06/05/18 08:20 Intake & Output 06/04/18 06/05/18 06/05/18 18:59 06:59 18:59 Weight 77.111 kg - Exam BMI 25.8 - Constitutional General appearance: Present: average body habitus - EENT Eyes: Present: EOMI - Neck Neck: Present: normal ROM - Respiratory Respiratory: - Cardiovascular Rhythm: regular Heart sounds: - Psychiatric Psychiatric: Present: A&O x's 3, appropriate affect, intact judgment & insight - Additional findings Additional findings: 8. Examination of the chest wall Incision right and left mastectomy sites clean and dry no evidence of infection incision under her right arm clean and dry Evidence of infection YONATAN drains incision sites clean and dry Evidence of infection drainage is yellow and serous in nature and size greater than 40 mL per 24-hour period Assessment and Plan Assessment: Impression: 1. Patient status post bilateral mastectomy with reconstruction and sentinel node biopsy on the right tumor is TisN0 M0 ER/MS negative grade 3 2. Patient doing well at this time low-grade fever last night has resolved no evidence of infection 3. Wheezing at right lung base which cleared patient encouraged to use an inhaler and spirometer at home 4. Patient following with Dr. Coy next week Plan: 1. Follow up with Dr. Coy next week 2. We will keep YONATAN drains at this time 3. Appointment with medical oncology, although doubt will have antihormone threapy as ER/MS negative 4. Follow-up here in 2 weeks CC: Dr. Sanders
== END | disposition home or self-care (01) ==
LOC: WWCWWP 08:16
PROVIDERS: ATTEND Surgery
DX: Z53.9 Procedure and treatment not carried out, unspecified reason (principal)

== ENCOUNTER 2018-06-06 16:38 | Emergency (ER) | payer MEDICARE ==
[2018-06-06] MEDS ORDERED: IBUPROFEN 600 MG TAB PO STA (17:32)
[2018-06-06] MEDS ORDERED: HYDROcodone/APAP 5-325MG 1 EACH TAB PO STA (17:33)
--- NOTE | 2018-06-06 17:40 | ED ---
Fever HPI - General Chief Complaint: Fever Stated Complaint: Fever post SX Time Seen by Provider: 06/06/18 17:06 Source: patient Mode of arrival: ambulatory Limitations: no limitations - History of Present Illness Initial Comments: 58-year-old female patient who is status post bilateral mastectomy on 05/28/[address] Estes, presents to the emergency department today for evaluation of fever. Patient states that she has had low-grade fever over the last week however this morning when her home care nurse was evaluating her the temp was 103F. Patient states was last couple days she has had cough and nasal congestion. States she is coughing up green sputum. She does have YONATAN drain to the bilateral chest which has been draining serosanguineous fluid. Patient denies any purulent drainage. Patient states that she has had mildly increased pain to the surgical sites but denies any redness or drainage from or surrounding the incisions. She denies any chest pain, shortness of breath, abdominal pain, nausea, vomiting, constipation, or diarrhea. Denies any rash. Patient denies any recent rash, back pain, numbness, tingling, dizziness, w eakness, hematuria, dysuria, urinary urgency, urinary frequency, headache, visual changes, or any other complaints. Patient is not currently receiving any immunosuppressive or chemotherapy. - Related Data Home Medications Medication Instructions Recorded Confirmed Albuterol Inhaler [Ventolin Hfa 1 - 2 puff INHALATION RT-Q6H PRN 03/19/18 06/06/18 Inhaler] Atorvastatin [Lipitor] 10 mg PO HS 03/19/18 06/06/18 Cetirizine HCl [Zyrtec] 10 mg PO DAILY 03/19/18 06/06/18 Topiramate [Topamax] 25 mg PO DAILY 03/19/18 06/06/18 Umeclidinium Brm/Vilanterol Tr 1 puff INHALATION RT-DAILY PRN 03/19/18 06/06/18 [Anoro Ellipta 62.5-25 Mcg INH] ALPRAZolam [Xanax] 0.25 mg PO DAILY PRN 05/21/18 06/06/18 Calcium/Magnesium/Zinc 1 tab PO DAILY 05/21/18 06/06/18 [Lgmjnxy-Dzgrkitwl-Dwax Tablet] Cholecalciferol [Vitamin D3] 5,000 unit PO DAILY 05/21/18 06/06/18 Escitalopram [Lexapro] 10 mg PO DAILY PRN 05/21/18 06/06/18 Ferrous Sulfate [Iron (65 MG 325 mg PO DAILY 05/21/18 06/06/18 Elemental)] [place]-3 Fatty Acids [[place]-3] 1,000 mg PO DAILY 05/21/18 06/06/18 Vitamin B Complex 1 cap PO DAILY 05/21/18 06/06/18 Gabapentin 600 mg PO BID@0900,1600 05/27/18 06/06/18 Gabapentin 900 mg PO HS 05/28/18 06/06/18 Hydrocodone/Acetaminophen [Felicity 1 tab PO Q4HR PRN 06/05/18 06/06/18 5-325] Previous Rx's Medication Instructions Recorded Cephalexin [Keflex] 500 mg PO Q6H #56 cap 06/06/18 Allergies Allergy/AdvReac Type Severity Reaction Status Date / Time Iodinated Contrast- Oral and Allergy Nausea & Verified 06/06/18 17:00 IV Dye Vomiting, rash Penicillins Allergy Rash/Hives Verified 06/06/18 17:00 Review of Systems ROS Statement: Those systems with pertinent positive or pertinent negative responses have been documented in the HPI. ROS Other: All systems not noted in ROS Statement are negative. 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 RT breast cancer stage 0-1. uses cane to ambulate and rt leg leg brace History of Any Multi-Drug Resistant Organisms: None Reported Past Surgical History: Appendectomy, Back Surgery, Joint Replacement, Orthopedic Surgery, Tubal Ligation Additional Past Surgical History / Comment(s): UTERINE CYST REMOVED; LT FRACTURED FEMUR WITH LEIGH PLACED and removed then lt KNEE REPLACEMENT; 16 PROCEDURE FOR LEFT KNEE; THREE BACK SURGERIES L2-S1 fusion 03/10/17 bone growth injected in back, bilateral mastectomy Past Anesthesia/Blood Transfusion Reactions: Motion Sickness, Postoperative Nausea & Vomiting (PONV) Additional Past Anesthesia/Blood Transfusion Reaction / Comment(s): Pt states she "always gets nausea and anxiety medication with major surgery" Past Psychological History: Depression Smoking Status: Former smoker Past Alcohol Use History: None Reported Past Drug Use History: None Reported - Past Family History Mother Family Medical History: Cancer Additional Family Medical History / Comment(s): Pt's mother was dx with Breast Cancer and Uterine Cancer with mets at age 50. Father Family Medical History: Cancer Additional Family Medical History / Comment(s): metastatic cancer unknown origin General Exam Limitations: no limitations General appearance: alert, in no apparent distress, other (Physical well- developed, well-nourished adult female patient in no acute distress. Vital sig ns upon presentation are temperature 100.2F, pulse 99, respirations 18, blood pressure 156/97, pulse ox 96% on room air.) Eye exam: Present: normal appearance, PERRL, EOMI. Absent: scleral icterus, conjunctival injection, periorbital swelling ENT exam: Present: normal exam, normal oropharynx, mucous membranes moist Respiratory exam: Present: normal lung sounds bilaterally, other (Congested cough noted throughout exam). Absent: respiratory distress, wheezes, rales, rhonchi, stridor Cardiovascular Exam: Present: regular rate, normal rhythm, normal heart sounds. Absent: systolic murmur, diastolic murmur, rubs, gallop, clicks GI/Abdominal exam: Present: soft, normal bowel sounds. Absent: distended, tenderness, guarding, rebound, rigid Neurological exam: Present: alert, oriented X3, CN II-XII intact Psychiatric exam: Present: normal affect, normal mood Skin exam: Present: warm, dry, intact, normal color, other (Incisions noted to the bilateral breast, well approximated with Steri-Strips. There is some dried blood, no surrounding cellulitis or erythema noted. No drainage in the incision sites. There are YONATAN drains is serosanguineous fluid. No evidence of purulent drainage.). Absent: rash Course Vital Signs 06/06/18 06/06/18 06/06/18 16:47 17:40 19:16 Temperature 100.2 F H 99.4 F Pulse Rate 99 83 Respiratory 18 20 18 Rate Blood Pressure 156/97 116/57 O2 Sat by Pulse 96 96 Oximetry Medical Decision Making - Medical Decision Making 58-year-old female patient who underwent recent bilateral mastectomy presented to the emergency department today for evaluation of fever of 103F. Physical examination did reveal healing incisions to the bilateral chest with no surrounding sialitis erythema, no drainage. YONATAN drains exhibit serosanguineous drainage is no evidence of purulence. Labs reviewed and did reveal a normal white blood cell count at 10.1, BUN was 25, creatinine 1.29. Urinalysis showed turbid urine appearance with 2+ protein, trace ketones, moderate blood, positive nitrite, large leukocyte esterase, greater than 182 white blood cells, many white blood cell clumps, many bacteria. She was negative for influenza. Patient did have some mild bilateral CVA tenderness. She was given 1.5 L of normal saline here in the emergency department. We will give 1 dose of IV Rocephin here in the emergency department she'll be discharged with a 2 week prescription for Keflex. She is instructed to follow-up with her primary care physician for further evaluation. We did discuss return parameters in detail, she is given strict return precautions. She does agree with this plan. - Lab Data Result diagrams: 06/06/18 17:50 06/06/18 17:50 Lab Results 06/06/18 06/06/18 06/06/18 Range/Units 17:50 17:50 17:50 WBC 10.1 (3.8-10.6) k/uL RBC 3.54 L (3.80-5.40) m/uL Hgb 11.8 (11.4-16.0) gm/dL Hct 36.4 (34.0-46.0) % MCV 103.0 H D (80.0-100.0) fL MCH 33.3 (25.0-35.0) pg MCHC 32.4 (31.0-37.0) g/dL RDW 14.2 (11.5-15.5) % Plt Count 254 (150-450) k/uL Neutrophils % 84 % Lymphocytes % 9 % Monocytes % 4 % Eosinophils % 1 % Basophils % 0 % Neutrophils # 8.6 H (1.3-7.7) k/uL Lymphocytes # 0.9 L (1.0-4.8) k/uL Monocytes # 0.4 (0-1.0) k/uL Eosinophils # 0.1 (0-0.7) k/uL Basophils # 0.0 (0-0.2) k/uL Macrocytosis Slight PT (9.0-12.0) sec INR (<1.2) APTT (22.0-30.0) sec Sodium 138 (137-145) mmol/L Potassium 4.4 (3.5-5.1) mmol/L Chloride 108 H (98-107) mmol/L Carbon Dioxide 21 L (22-30) mmol/L Anion Gap 9 mmol/L BUN 25 H (7-17) mg/dL Creatinine 1.29 H (0.52-1.04) mg/dL Est GFR (CKD-EPI)AfAm 52 (>60 ml/min/1.73 sqM) Est GFR (CKD-EPI)NonAf 46 (>60 ml/min/1.73 sqM) Glucose 110 H (74-99) mg/dL Plasma Lactic Acid Francois 0.8 (0.7-2.0) mmol/L Calcium 8.6 (8.4-10.2) mg/dL Total Bilirubin 0.5 (0.2-1.3) mg/dL AST 13 L (14-36) U/L ALT 20 (9-52) U/L Alkaline Phosphatase 93 (38-126) U/L Total Protein 5.7 L (6.3-8.2) g/dL Albumin 2.9 L (3.5-5.0) g/dL Urine Color Urine Appearance (Clear) Urine pH (5.0-8.0) Ur Specific [place] (1.001-1.035) Urine Protein (Negative) Urine Glucose (UA) (Negative) Urine Ketones (Negative) Urine Blood (Negative) Urine Nitrite (Negative) Urine Bilirubin (Negative) Urine Urobilinogen (<2.0) mg/dL Ur Leukocyte Esterase (Negative) Urine WBC (0-5) /hpf Urine WBC Clumps (None) /hpf Urine Bacteria (None) /hpf Influenza Type A RNA (Not Detectd) Influenza Type B (PCR) (Not Detectd) 06/06/18 06/06/18 06/06/18 Range/Units 17:50 17:50 17:50 WBC (3.8-10.6) k/uL RBC (3.80-5.40) m/uL Hgb (11.4-16.0) gm/dL Hct (34.0-46.0) % MCV (80.0-100.0) fL MCH (25.0-35.0) pg MCHC (31.0-37.0) g/dL RDW (11.5-15.5) % Plt Count (150-450) k/uL Neutrophils % % Lymphocytes % % Monocytes % % Eosinophils % % Basophils % % Neutrophils # (1.3-7.7) k/uL Lymphocytes # (1.0-4.8) k/uL Monocytes # (0-1.0) k/uL Eosinophils # (0-0.7) k/uL Basophils # (0-0.2) k/uL Macrocytosis PT 10.2 (9.0-12.0) sec INR 0.9 (<1.2) APTT 24.4 (22.0-30.0) sec Sodium (137-145) mmol/L Potassium (3.5-5.1) mmol/L Chloride (98-107) mmol/L Carbon Dioxide (22-30) mmol/L Anion Gap mmol/L BUN (7-17) mg/dL Creatinine (0.52-1.04) mg/dL Est GFR (CKD-EPI)AfAm (>60 ml/min/1.73 sqM) Est GFR (CKD-EPI)NonAf (>60 ml/min/1.73 sqM) Glucose (74-99) mg/dL Plasma Lactic Acid Francois (0.7-2.0) mmol/L Calcium (8.4-10.2) mg/dL Total Bilirubin (0.2-1.3) mg/dL AST (14-36) U/L ALT (9-52) U/L Alkaline Phosphatase (38-126) U/L Total Protein (6.3-8.2) g/dL Albumin (3.5-5.0) g/dL Urine Color Yellow Urine Appearance Turbid H (Clear) Urine pH 5.5 (5.0-8.0) Ur Specific [place] 1.016 (1.001-1.035) Urine Protein 2+ H (Negative) Urine Glucose (UA) Negative (Negative) Urine Ketones Trace H (Negative) Urine Blood Moderate H (Negative) Urine Nitrite Positive H (Negative) Urine Bilirubin Negative (Negative) Urine Urobilinogen <2.0 (<2.0) mg/dL Ur Leukocyte Esterase Large H (Negative) Urine WBC >182 H (0-5) /hpf Urine WBC Clumps Many H (None) /hpf Urine Bacteria Many H (None) /hpf Influenza Type A RNA Not Detected (Not Detectd) Influenza Type B (PCR) Not Detected (Not Detectd) - Radiology Data Radiology results: report reviewed, image reviewed Two-view x-ray of the chest is obtained. Report was reviewed in its entirety. Impression by Dr. Harvey shows no acute cardio pulmonary process. Disposition Clinical Impression: Urinary tract infection Disposition: HOME SELF-CARE Condition: Good Instructions (If sedation given, give patient instructions): Urinary Tract Infection in Women (ED), Fever in Adults (ED) Additional Instructions: Increase fluids. Complete antibiotic prescription and full. Follow-up with the primary care physician for recheck in 1-2 days. Have repeat urinalysis performed once antibiotics are done to ensure clearance of infection. Return to the emergency department immediately for any new, worsening, or concerning symptoms. Prescriptions: Cephalexin [Keflex] 500 mg PO Q6H #56 cap Is patient prescribed a controlled substance at d/c from ED?: No Referrals: Alexey Sanders MD [Primary Care Provider] - 1-2 days Time of Disposition: 19:29
[2018-06-06] MEDS: SODIUM CHLORIDE 0.9% 500 ML 500 ML IV SCH (17:49)
[2018-06-06 18:09] LABS: Basophils % (A) 0 %; Eosinophils # (A) 0.1 k/uL (0-0.7); Eosinophils % (A) 1 %; HCT 36.4 % (34.0-46.0); HGB 11.8 gm/dL (11.4-16.0); Lymphocytes # (A) 0.9 k/uL (1.0-4.8); Lymphocytes % (A) 9 %; MCH 33.3 pg (25.0-35.0); MCHC 32.4 g/dL (31.0-37.0); Macrocytosis Slight; Mean Platelet Volume 7.7; Monocytes # (A) 0.4 k/uL (0-1.0); Monocytes % (A) 4 %; Neutrophils # (A) 8.6 k/uL (1.3-7.7); Neutrophils % (A) 84 %; Platelet Count 254 k/uL (150-450); RBC 3.54 m/uL (3.80-5.40); RDW 14.2 % (11.5-15.5); WBC 10.1 k/uL (3.8-10.6)
[2018-06-06 18:20] LABS: Albumin 2.9 g/dL (3.5-5.0); Calcium 8.6 mg/dL (8.4-10.2); Potassium 4.4 mmol/L (3.5-5.1); Total Bilirubin 0.5 mg/dL (0.2-1.3); Total Protein 5.7 g/dL (6.3-8.2)
[2018-06-06 18:25] LABS: INR 0.9 (<1.2); Partial Thromboplastin Time 24.4 sec (22.0-30.0); Prothrombin Time 10.2 sec (9.0-12.0)
[2018-06-06 18:48] LABS: Appearance,Urine Turbid (Clear); Bacteria,Urine Many /hpf; Bilirubin,Urine Negative (Negative); Blood,Urine Moderate (Negative); Color,Urine Yellow; Glucose,Urine (UA) Negative (Negative); Ketones,Urine Trace (Negative); Leukocyte Esterase,Urine Large (Negative); Nitrite,Urine Positive (Negative); PH, Urine 5.5 (5.0-8.0); Protein,Urine 2+ (Negative); Specific Gravity,Urine 1.016 (1.001-1.035); Urobilinogen,Urine <2.0 mg/dL (<2.0); WBC,Urine >182 /hpf (0-5)
--- NOTE | 2018-06-06 19:00 | XR ---
EXAMINATION TYPE: XR chest 2V DATE OF EXAM: 06/06/2018 COMPARISON: NONE HISTORY: Fever day status post surgery on 05/26/2018 TECHNIQUE: Frontal and lateral views of the chest are obtained. FINDINGS: Tissue expanders are seen within the breasts. The lungs are well aerated without focal con solidation, pleural effusion or pneumothorax. Osseous structures are grossly intact. Cardia mediastin al silhouette is within normal limits. IMPRESSION: No acute cardiopulmonary process.
[2018-06-06 19:18] VITALS: BP 116/57; PULSE 83; RESP 18; TEMP 99.4
== END 2018-06-06 20:17 | disposition home or self-care (01) ==
LOC: EC 16:38
DX: N39.0 Urinary tract infection, site not specified (principal); N64.4 Mastodynia; R05 Cough; R09.89 Other specified symptoms and signs involving the circulatory and respiratory systems; J45.909 Unspecified asthma, uncomplicated; M79.7 Fibromyalgia; E78.5 Hyperlipidemia, unspecified; G62.9 Polyneuropathy, unspecified; G43.909 Migraine, unspecified, not intractable, without status migrainosus; M19.90 Unspecified osteoarthritis, unspecified site; Z85.3 Personal history of malignant neoplasm of breast; Z96.652 Presence of left artificial knee joint; Z87.891 Personal history of nicotine dependence; Z90.13 Acquired absence of bilateral breasts and nipples; Z79.899 Other long term (current) drug therapy; Z91.041 Radiographic dye allergy status; Z88.0 Allergy status to penicillin
CPT/HCPCS: 36415; 80053; 83605; 85025; 85610; 85730; 81001; 87040; 87086; 87502; 71046; 99283; 96365; 96361; J0696; 87077; 87186

== ENCOUNTER → 2018-06-18 | Outpatient (CLI) | payer MEDICARE ==
[2018-06-18 10:58] VITALS: PULSE 78; RESP 18; TEMP 98.8; BMI 27.2
--- NOTE | 2018-06-18 11:15 | P.PN ---
Subjective Progress Note Date: 06/18/18 Principal diagnosis: Keri is a 58-year-old white female status post bilateral mastectomy for right breast ductal carcinoma in situ. The procedure was performed on . She is being followed by Dr. Coy. The patient was last seen by him on Friday and at that time she was noted to have some necrosis on the left incision site and this appears to be partial-thickness and is being treated with Neosporin. The patient states that she was seen in the hospital approximately 2 weeks ago with an elevated temperature was noted to have a urinary tract infection for which she received antibiotics and it has since resolved, she is still on the antibiotics until Friday. She has both her YONATAN drain still in place. Both sides have minimal output at this time. And it is felt that the YONATAN drains can be removed. Objective - Vital Signs Vital signs: Vital Signs Temp 98.8 F 06/18/18 10:51 Pulse 78 06/18/18 10:51 Resp 18 06/18/18 10:51 BP 145/88 06/18/18 10:51 Pulse Ox 97 06/18/18 10:51 - Constitutional General appearance: Present: average body habitus - EENT Eyes: Present: EOMI ENT: Present: hearing grossly normal - Neck Neck: Present: normal ROM - Respiratory Respiratory: right: wheezing - Cardiovascular Rhythm: regular Heart sounds: normal: S1, S2 - Psychiatric Psychiatric: Present: A&O x's 3, appropriate affect, intact judgment & insight Assessment and Plan Assessment: Impression: 1. Patient status post bilateral mastectomy with reconstruction sentinel node biopsy on the right, tumors Tis N0 M0 ER/AZ negative grade 3 2. Patient doing well at this time being treated for urinary tract infection 3. Wheezing right lung base patient to use an inhaler and spirometry at home 4. Following with Dr. Coy 5. Minimal output from YONATAN drains 6. Skin changes and [id number] flushing at the left breast incision site Plan: 1. DC YONATAN drains 2. Follow-up with Dr. Coy next week 3. Premarin with medical oncology 4. Follow-up care in 2 weeks cc: Dr. Sanders
[2018-06-18 16:09] VITALS: BP 145/88
== END | disposition home or self-care (01) ==
LOC: WWCWWP 10:31
PROVIDERS: ATTEND Surgery
DX: Z53.9 Procedure and treatment not carried out, unspecified reason (principal)

== ENCOUNTER → 2018-07-02 | Outpatient (CLI) | payer MEDICARE ==
[2018-07-02 09:13] VITALS: BP 147/69; PULSE 72; RESP 18; TEMP 96.8; BMI 26.9
--- NOTE | 2018-07-02 09:38 | P.PN ---
Subjective Progress Note Date: 07/02/18 Principal diagnosis: Adrianna is a 58-year-old white female status post bilateral mastectomy with immediate reconstruction on . Pathology revealed right breast DCIS and 2 sentinel nodes were negative for metastatic disease. The left breast was negative for malignancy. She had immediate bilateral subpectoral implant reconstruction. All of her drains have been removed. She has been seen by medical oncology and does not need any hormonal or chemotherapy. She does not n eed any radiation therapy. Her tumor was a TisN0 M0 ER/TN -, Grade 3. The patient since had been seen with a low-grade infection and diagnosed with urinary tract infection. She has been treated for the urinary tract infection and has had no further problems with fevers. Objective - Vital Signs Vital signs: Vital Signs Temp 96.8 F L 07/02/18 09:02 Pulse 72 07/02/18 09:02 Resp 18 07/02/18 09:02 BP 147/69 07/02/18 09:02 Pulse Ox 98 07/02/18 09:02 Intake & Output 07/01/18 07/02/18 07/02/18 18:59 06:59 18:59 Weight 80.286 kg - Constitutional General appearance: Present: average body habitus, cooperative - EENT Eyes: Present: EOMI ENT: Present: hearing grossly normal - Neck Neck: Present: normal ROM - Respiratory Respiratory: bilateral: CTA - Cardiovascular Rhythm: regular Heart sounds: normal: S1, S2 - Psychiatric Psychiatric: Present: A&O x's 3, appropriate affect - Additional findings Additional findings: Incision right breast clean and dry Incision left breast some mild superficial skin sloughing which is improving Assessment and Plan Assessment: Impression: 1. Patient status post bilateral mastectomy with reconstruction sentinel node biopsy in the right side tumor as he T I asked N0 M0 ER/TN negative grade 3 2. Patient doing well at this time has recently been treated for urinary tract infectionlow-grade fevers 3. Improvement with no wheezing on today's exam in her lung bases 4. Continue to follow with Dr. Coy 5. Has been seen by medical oncology and no recommendation of any chemo or hor monal therapy. Plan: 1. Continue follow-up Dr. Coy 2. Follow here in 4 months time Cc: Dr. Sanders
== END ==
LOC: WWCWWP 08:32
PROVIDERS: ATTEND Surgery
DX: Z53.9 Procedure and treatment not carried out, unspecified reason (principal)

== ENCOUNTER → 2018-10-29 | Outpatient (CLI) | payer MEDICARE ==
[2018-10-29 12:45] VITALS: BP 153/85; PULSE 96; RESP 18; TEMP 98.1; BMI 26.9
--- NOTE | 2018-10-29 13:09 | P.PN ---
Subjective Progress Note Date: 10/29/18 Principal diagnosis: stage 0 breast cancer Adrianna is a 58-year-old white female status post bilateral mastectomy with immediate reconstruction on . Pathology revealed right breast DCIS and 2 sentinel nodes were negative for metastatic disease. The left breast was negative for malignancy. She had immediate bilateral subpectoral implant reconstruction. All of her drains have been removed. She has been seen by medical oncology and does not need any hormonal or chemotherapy. She does not need any radiation therapy. Her tumor was a TisN0 M0 ER/[place] -, Grade 3. The patient is still in the process of her breast reconstruction. She is having her expanders filled every other week. The drive was approximately [address] for her. FAmily History: mother: breast and ovarian cancer, of brain tumor father: lung cancer Surgical history: 1. Bilateral mastectomy with immediate subpectoral implant reconstruction 2. Appendectomy 3. Left knee surgery 4. 3 back surgeries Medical history: Asthma Social history: Smoke: Stopped in 2016 Alcohol: Negative Drugs: Negative ROS: HEENT: Former smoker otherwise negative Lungs: Asthma Heart: Negative GI: Negative : Appointment with kidney specialist uncertain as to the reason Musculoskeletal: Arthritis Psychiatric: Negative ALLERGIES: Seasonal Skin:none Hematologic: Negative Objective - Vital Signs Vital signs: Vital Signs Temp 98.1 F 10/29/18 12:41 Pulse 96 10/29/18 12:41 Resp 18 10/29/18 12:41 BP 153/85 10/29/18 12:41 Pulse Ox 98 10/29/18 12:41 Intake & Output 10/28/18 10/29/18 10/29/18 18:59 06:59 18:59 Weight 82.554 kg - Exam BMI 26.9 - Constitutional General appearance: Present: average body habitus - EENT Eyes: Present: EOMI ENT: Present: hearing grossly normal - Neck Neck: Present: normal ROM - Respiratory Respiratory: bilateral: CTA - Cardiovascular Rhythm: regular Heart sounds: normal: S1, S2 - Gastrointestinal General gastrointestinal: Present: soft - Integumentary Integumentary: Present: normal turgor - Musculoskeletal Musculoskeletal Comment(s): uses cane to walk, drop foot back surgery in 2008 - Psychiatric Psychiatric: Present: A&O x's 3, appropriate affect, intact judgment & insight - Additional findings Additional findings: Breast exam: Right chest wall well-healed scars in the process of rv technician reconstruction no evidence of recurrent cancer Right axilla: No adenopathy of concern Left chest wall: Patient status post mastectomy incisions clean and dry in the processes of rv technician reconstruction Left axilla: No adenopathy of concern Assessment and Plan Assessment: Impression: 1. Patient status post bilateral mastectomies with subpectoral implant reconstruction in the process of reconstruction 2. Stage 0 DCIS 3. Family history of cancer 4. Family history of breast cancer 5. Former smoker 6. History of back pain with back surgeries 7. Foot drop uses a cane for walking Plan: 1. Continue present therapy 2. 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 Medical management of medical conditions Cc: Dr. Sanders
== END | disposition home or self-care (01) ==
LOC: WWCWWP 12:34
PROVIDERS: ATTEND Surgery
DX: Z53.9 Procedure and treatment not carried out, unspecified reason (principal)

== ENCOUNTER → 2018-12-18 | Outpatient (CLI) | payer MEDICARE ==
[2018-12-18 16:01] LABS: Basophils # (A) 0.1 k/uL (0-0.2); Basophils % (A) 2 %; Eosinophils # (A) 0.1 k/uL (0-0.7); Eosinophils % (A) 2 %; HCT 44.9 % (34.0-46.0); HGB 14.1 gm/dL (11.4-16.0); Lymphocytes # (A) 1.7 k/uL (1.0-4.8); Lymphocytes % (A) 22 %; MCH 32.5 pg (25.0-35.0); MCHC 31.5 g/dL (31.0-37.0); MCV 103.2 fL (80.0-100.0); Macrocytosis Slight; Mean Platelet Volume 9.2; Monocytes # (A) 0.4 k/uL (0-1.0); Monocytes % (A) 4 %; Neutrophils # (A) 5.4 k/uL (1.3-7.7); Neutrophils % (A) 69 %; Platelet Count 180 k/uL (150-450); RBC 4.35 m/uL (3.80-5.40); RDW 14.8 % (11.5-15.5); WBC 7.8 k/uL (3.8-10.6)
== END | disposition home or self-care (01) ==
LOC: LABPAT 13:13
PROVIDERS: ATTEND Anesthesiology
DX: Z01.812 Encounter for preprocedural laboratory examination (principal)
CPT/HCPCS: 85025

== ENCOUNTER 2018-12-22 06:55 | Day surgery (SDC) | payer MEDICARE ==
[2018-12-18 11:46] VITALS: BMI 26.9
[~2018-12-22 06:55] MED LIST changes: +DEXAMETHASONE SOD PHOSPHATE 10 MG/ML 1 ML VIAL IV ONE; +LACTATED RINGERS 1,000 ML IV SCH; +LIDOCAINE 1% 20 ML VIAL (10MG/ML) FOR IV START INTRADERMA PRN; -MIDAZOLAM (PF) 2 MG/2 ML VIAL IV PRN; +MIDAZOLAM 2 MG/2 ML VIAL IV PRN; +ONDANSETRON 4 MG/2 ML VIAL IVP ONE; +SCOPOLAMINE 1.5MG/72HR PATCH TRANSDERM ONE
[2018-12-22 07:42] VITALS: RESP 16
[2018-12-22] MEDS ORDERED: CLINDAMYCIN 600 MG in DEXTROSE 5% IN WATER 50 ML IVPB STA ×2 (07:53)
[2018-12-22] MEDS ORDERED: MIDAZOLAM 2 MG/2 ML VIAL ONE (09:16)
[2018-12-22] MEDS ORDERED: fentaNYL (PF) 50 MCG/ML 2 ML AMP ONE (09:16)
[2018-12-22] MEDS ORDERED: LIDOCAINE 1% INJ 10MG/ML (20 ML MDV) ONE (09:16)
[2018-12-22] MEDS ORDERED: ePHEDrine SULFATE/0.9% NACL/PF 50 MG/5 ML SYRINGE IV ONE (09:16)
[2018-12-22] MEDS ORDERED: NEOSTIGMINE 1 MG/ML 10 ML VIAL ONE (09:16)
[2018-12-22] MEDS ORDERED: GLYCOPYRROLATE 0.2 MG/ML 2 ML VIAL ONE (09:16)
[2018-12-22] MEDS ORDERED: ROCURONIUM BROMIDE 10 MG/ML 10 ML VIAL IV ONE (09:16)
[2018-12-22] MEDS ORDERED: PROPOFOL 10 MG/ML 20 ML VIAL IV ONE (09:16)
[2018-12-22 11:15] VITALS: TEMP 97
[2018-12-22] MEDS: HYDROmorphone 0.5 MG/0.5 ML SYRINGE IVP PRN ×4 (11:41→12:18)
[2018-12-22] MEDS ORDERED: LACTATED RINGERS 1,000 ML IV ONE (11:50)
--- NOTE | 2018-12-22 12:06 | OP ---
OPERATIVE REPORT DATE OF SURGERY: 12/22/2018. SURGEON: Jian Markham MD. PREOPERATIVE DIAGNOSES: 1. Acquired loss of right and left breast. 2. Acquired loss right and left breast inframammary folds. 3. Acquired deformity of right and left reconstructed breast. 4. Personal history of bilateral mastectomy. 5. Personal history of breast cancer. POSTOPERATIVE DIAGNOSES: 1. Acquired loss right and left breast. 2. Acquired loss right and left breast inframammary folds. 3. Acquired deformity of right and left reconstructed breast. 4. Personal history of bilateral mastectomy. 5. Personal history of breast cancer. OPERATIVE PROCEDURES: 1. Replace right breast tissue food products tester with silicone breast implant for right breast reconstruction. 2. Revision right reconstructed breast. 3. Replace left breast tissue food products tester with silicone breast implant for left breast reconstruction. 4. Revision left reconstructed breast. 5. Reconstruction of right and left inframammary folds via local advancement flaps, 135 cm2. 6. Implantation of reconstructive graft for right and left breast reconstruction. OPERATIVE INDICATIONS: The patient is a 58-year-old female who has undergone bilateral mastectomy for treatment of breast cancer with immediate reconstruction via tissue food products tester technique. She has completed subsequent outpatient expansions, returning to surgery today for replacement of her tissue expanders with silicone breast implants, revision of her breast to obtain optimal shape and size. Multiple deformities are present due the mastectomy and expansion processes as well as reconstruction right left inframammary folds that have been effaced by the mastectomy and tissue expansion process. Patient understands her potential risks and complications related to the surgery. In addition, further surgery may be required to obtain a final result. She has requested I proceed with today's surgeries. OPERATIVE PROCEDURE SUMMARY: The patient was seen in the presurgical area, markings made, procedure reviewed. All questions answered. She is transported to the operating room where general endotracheal anesthesia was established. She was positioned prone on the operating table. She was prepped and draped in usual fashion. The surgery is initiated on the right side following the marking placed preoperatively through the lower transverse mastectomy incision. Incision was made with a 10 blade scalpel dividing skin full- thickness fashion followed by cauterization device in the subcutaneous tissue layer until reaching underlying muscle fascial flap layer. Dissection was performed, elevating skin and subcutaneous tissue flaps off this layer to release contour irregularities. Extensive dissection was performed. Once this was completed, a transverse incision was made through the muscle flap layer offsetting from the skin incision level in a more cephalad fashion exposing the food products tester. The food products tester was removed intact. The expansion cavity appeared normal with some serous fluid, but no granulation tissue, no exudates. Irrigation is performed. A complete capsulotomy incision was made where the capsule joined the chest wall with cauterization. Multiple cruciate incisions through the capsular structure were made on all surfaces except the lateral aspect to release tightness. Additional dissection of the muscle flap was required medially and medially superiorly to optimize the shape of the patient's reconstruction. Hemostasis maintained with cautery. Additional irrigation was performed. The site was packed with multiple laparotomy pads. Attention was turned towards the left side. Again, a transverse mastectomy incision was made as diagrammed dividing skin in full-thickness fashion, followed by cauterization to divide subcutaneous tissue layer and then dissect subcutaneous tissue skin flaps off the muscle flap fascia layer. Extensive dissection was required to release contour irregularities and optimize skin draping for the shape. Once this was completed, a transverse incision was made through the muscle flap layer offset from the skin incision in cephalad fashion. Once the incision was made, the food products tester was exposed, the food products tester was removed intact. The expansion cavity appeared normal, some serous fluid, but no granulation tissue, no exudates. The cavity was irrigated. Again a complete capsulotomy incision was made where the capsule joined the chest wall and multiple cruciate incisions through the capsular structures to release the tightness and optimize the shape on all surfaces, except the lateral aspect. Additional dissection was required to optimize the patient's shape by releasing the muscle flap tissue medially and medially superiorly. This was done with cautery. Hemostasis maintained with cautery. The cavities appeared symmetrical when closely inspected. The inframammary folds were reconstructed on the right and left side. Due to the shape and slight differences, the folds were not equally sized. The right fold area was 23 cm transversely by 3 cm vertically and the left fold 22 x 3 cm vertically. Skin subcutaneous tissue flaps were elevated through the inferior capsulotomy incision to the dimensions described and then the inferior skin subcutaneous tissue flap advanced in a cephalad fashion and secured to several locations to the periosteal structure and surface of rib in the area using interrupted 0 Vicryl sutures. The right and left side were completed. Good symmetry was obtained when inspected. Temporary breast implant sizers were opened on the field. Several sizes were tried. Ultimately 550 mL sizers appeared best with the patient with incisions closed and patient seated up, she has returned to supine position. Temporary jamila in the implant sizers removed and breast implants were opened on the field. Both implants were from the [employer], memory gel, smooth round high profile silicone breast implants, 550 mL volumes, reference #[id number]. The serial number for the left side was [id number] and serial number for right side was [id number], gloves were changed prior to handling implants, they were only handled by the surgeon. The right-sided implant was irrigated with saline, inserted in the reconstructive cavity and then the left side. The muscle flap tissue could not be approximated over either implant without some distortion, therefore a reconstructive graft was opened on the field. SurgiMend PRS, then measuring 10 x 15 cm was opened, revitalized with room temperature saline. Once ready the graft was cut along its long axis, two equal portions, one portion placed on the right and then the other on the left. They were placed directly over the implant and then underneath the edge of the muscle flap tissue on all surfaces and then inset in each side using interrupted 3-0 Vicryl suture. The grafts were located in the inferior sling-type formation and once inset complete coverage was obtained. The skin incisions in each side were now closed, approximating the deep dermis using inverted interrupted 4-0 Monocryl and then closed in superficial dermis and epidermis with subcuticular running 5-0 Prolene. Surgical gutierrez cleansed with saline, dried. Postoperative bandages placed using sterile 1 inch paper tape on each side, followed by 4 Kerlix squares secured paper tape in position size 3 mammary support with additional gauze padding in the lateral aspect. The patient was then awakened from her anesthetic, extubated in the operating room and transferred to recovery room in good condition with stable vital signs. Estimated blood loss was 50 mL. There were no complications. MMODL / IJN: [id number] /
[2018-12-22] MEDS ORDERED: ONDANSETRON 4 MG/2 ML VIAL IVP ONE (12:23)
[2018-12-22] MEDS ORDERED: HYDROcodone/APAP 5-325MG 1 EACH TAB PO ONE (13:05)
[2018-12-22 13:22] VITALS: BP 113/70; PULSE 65
== END 2018-12-22 13:50 | disposition home or self-care (01) ==
LOC: OR 06:55
PROVIDERS: ATTEND Plastic Surgery
DX: Z90.13 Acquired absence of bilateral breasts and nipples (principal); N65.0 Deformity of reconstructed breast; Z85.3 Personal history of malignant neoplasm of breast; G62.9 Polyneuropathy, unspecified; J45.909 Unspecified asthma, uncomplicated; M19.90 Unspecified osteoarthritis, unspecified site; Z88.0 Allergy status to penicillin; Z88.5 Allergy status to narcotic agent; Z91.041 Radiographic dye allergy status; Z80.3 Family history of malignant neoplasm of breast; Z80.41 Family history of malignant neoplasm of ovary; Z83.3 Family history of diabetes mellitus; Z91.09 Other allergy status, other than to drugs and biological substances; E78.5 Hyperlipidemia, unspecified; Z86.718 Personal history of other venous thrombosis and embolism; Z87.891 Personal history of nicotine dependence; M21.372 Foot drop, left foot; M21.371 Foot drop, right foot; M79.7 Fibromyalgia; S02.5XXA Fracture of tooth (traumatic), initial encounter for closed fracture; X58.XXXA Exposure to other specified factors, initial encounter; Z79.891 Long term (current) use of opiate analgesic; Z79.899 Other long term (current) drug therapy
CPT/HCPCS: 19380; 11970; C1763; C1789; J2250; J1100; J2710; J2405; J2001; J3010; J2704; J1170

== ENCOUNTER → 2019-03-11 | Outpatient (CLI) | payer MEDICARE ==
[2019-03-11 14:37] VITALS: BP 148/79; PULSE 80; RESP 18; TEMP 97.8
--- NOTE | 2019-03-11 18:01 | P.PN ---
Subjective Progress Note Date: 03/11/19 Principal diagnosis: stage 0 right breast cancer stage 0 breast cancer Adrianna is a 58-year-old white female status post bilateral mastectomy with immediate reconstruction on . Pathology revealed right breast DCIS and 2 sentinel nodes were negative for metastatic disease. The left breast was negative for malignancy. She had immediate bilateral subpectoral implant reconstruction. She has been seen by medical oncology and does not need any hormonal or chemotherapy. She does not need any radiation therapy. Her tumor was a TisN0 M0 ER/[place] -, Grade 3. the patient has finished her reconstruction and is very satisfied with it. She does complain of some discomfort at the lateral dog ears on each side, and in the left breast skin site. FAmily History: mother: breast and ovarian cancer, of brain tumor father: lung cancer Surgical history: 1. Bilateral mastectomy with immediate subpectoral implant reconstruction 2. Appendectomy 3. Left knee surgery 4. 3 back surgeries Medical history: Asthma stage III kidney cancer Social history: Smoke: Stopped in 2016 Alcohol: Negative Drugs: Negative ROS: HEENT: Former smoker otherwise negative Lungs: Asthma Heart: Negative GI: Negative : Appointment with kidney specialist uncertain as to the reason Musculoskeletal: Arthritis Psychiatric: Negative ALLERGIES: Seasonal Skin:none Hematologic: Negative Objective - Vital Signs Vital signs: Vital Signs Temp 97.8 F 03/11/19 14:32 Pulse 80 03/11/19 14:32 Resp 18 03/11/19 14:32 BP 148/79 03/11/19 14:32 Pulse Ox 98 03/11/19 14:32 Intake & Output 03/10/19 03/11/19 03/11/19 18:59 06:59 18:59 Weight 77.111 kg - Exam BMI 25.1 - Constitutional General appearance: Present: average body habitus - EENT Eyes: Present: EOMI ENT: Present: hearing grossly normal - Neck Neck: Present: normal ROM - Respiratory Respiratory: bilateral: CTA - Cardiovascular Rhythm: regular Heart sounds: normal: S1, S2 - Gastrointestinal General gastrointestinal: Present: normal bowel sounds, soft - Integumentary Integumentary: Present: normal turgor - Musculoskeletal Musculoskeletal: Present: gait normal - Psychiatric Psychiatric: Present: A&O x's 3, appropriate affect, intact judgment & insight - Additional findings Additional findings: examination of the chest wall right chest wall incision clean and dry well- healed no evidence of any disease Left chest wall incision clean and dry no evidence of any disease Assessment and Plan Assessment: impression: 1. Right breast ductal carcinoma in situ 2. Status post bilateral mastectomy with immediate subpectoral implant reconstruction patient doing well at this time Plan: 1. Follow-up surveillance exam in 4 months 2. Medical management of asthma and stage III kidney disease cc: Dr. Sanders encounter approximately 20 minutes, greater than 50% of time spent in planning and counseling
== END ==
LOC: WWCWWP 14:04
PROVIDERS: ATTEND Surgery
DX: Z53.9 Procedure and treatment not carried out, unspecified reason (principal)

== ENCOUNTER → 2019-04-29 | Outpatient (CLI) | payer MEDICARE ==
--- NOTE | 2019-04-29 13:32 | CT ---
EXAMINATION TYPE: CT abdomen pelvis wo con DATE OF EXAM: 04/29/2019 HISTORY: Hematuria for [address] DLP: 715.9 mGycm. Automated Exposure Control for Dose Reduction was Utilized. TECHNIQUE: CT scan of the abdomen and pelvis is performed without oral or IV contrast. COMPARISON: NONE FINDINGS: Within the limitations of a non-contrast study, the following observations are made. LUNG BASES: Mild central linear scarring and/or atelectasis. LIVER/GB: Nonspecific 2.6 cm right hepatic hypodense lesion image 46. PANCREAS: No significant abnormality is seen. SPLEEN: No significant abnormality is seen. ADRENALS: No significant abnormality is seen. KIDNEYS: No renal calculi identified bilaterally. Unusual appearance to both kidneys with cortical ar eas of lobulation and thinning along with low density of uncertain etiology? Extrarenal pelvis on the left without calyceal dilatation. More prominent extrarenal pelvis on the right with mild fullness t owards the calyces. There is no hydroureter however. No intraluminal calculus in the bladder BOWEL: Moderate size hiatal hernia. No suspicious small or large bowel dilatation. Terminal ileum tina ears within normal limits coronal image 40. Few scattered diverticula in the sigmoid colon. Diverticu la in the cecum slightly low-lying into pelvis coronal image 42. Appendix suspect is surgically absen t as not distinctly visualized. GENITAL ORGANS: Uterus is slightly retroverted sagittal image 62. Left ovary normal in size near axia l image 122. Right ovary is abnormal with well-defined mass measuring 5.9 x 5.6 cm segment axial colleen ge 18 x 5.5 cm craniocaudal dimension coronal image 54. There is a lobulated thickened solid componen t along the posterior right inferior margin and a cystic component along the left anterior superior a spect. Both areas show calcification with more prominent calcific foci seen in the cystic component. Scattered pelvic phleboliths are present. LYMPH NODES: No greater than 1cm abdominal or pelvic lymph nodes are appreciated. OSSEOUS STRUCTURES: Posterior interpedicular rods and screws transfix L3-S1 level bilaterally alignme nt is satisfactory. Artificial disc material. Mild to moderate disc space narrowing with mild spurrin g in both hip joints. OTHER: No significant additional abnormality is seen. IMPRESSION: 1. Source of hematuria not identified. Unusual appearance to both kidneys with the areas of lobulatio n, low density, and cortical thinning. I suspect there is possible vascular compromise. Further inves tigation with CTA study may be beneficial. 2. There is nearly 6 cm solid and cystic right ovarian mass suspicious for neoplasm such as teratoma. Gynecology oncology referral advised. 3. Nonspecific 2.6 cm right hepatic hypodense mass laterally. Further investigation with multiphasic liver protocol contrast enhanced CT or MRI is advised to better evaluate and characterize.
== END | disposition home or self-care (01) ==
LOC: RADCTMAIN 12:23
PROVIDERS: ATTEND Urology
DX: N28.89 Other specified disorders of kidney and ureter (principal); R16.0 Hepatomegaly, not elsewhere classified; N83.291 Other ovarian cyst, right side; Z88.0 Allergy status to penicillin; Z88.5 Allergy status to narcotic agent; Z91.041 Radiographic dye allergy status
CPT/HCPCS: 74176

== ENCOUNTER → 2019-09-09 | Outpatient (CLI) | payer MEDICARE ==
[2019-09-09 11:26] VITALS: BP 124/78; PULSE 99; RESP 20; TEMP 98.2
--- NOTE | 2019-09-09 11:50 | P.PN ---
Subjective Progress Note Date: 09/09/19 Principal diagnosis: right breast stage 0 cancer Adrianna is a 58-year-old white female status post bilateral mastectomy with immediate reconstruction on . Pathology revealed right breast DCIS and 2 sentinel nodes were negative for metastatic disease. The left breast was negative for malignancy. She had immediate bilateral subpectoral implant reconstruction. She has been seen by medical oncology and does not need any hormonal or chemotherapy. She does not need any radiation therapy. Her tumor was a TisN0 M0 ER/[place] -, Grade 3. the patient has finished her reconstruction and is very satisfied with it. She does complain of some discomfort at the lateral dog ears on each side, and in the left breast skin site. The patient has stage IIIA kidney failure. She had bilateral ureteral stints recently removed. She also has a spot noted on her liver, followed by GI and will be seen again in three months for this. She had a finished cloth examiner appointment with Laurence Bhatt and she was told she had a lesion on her tubes and she is being sent to a finished cloth examiner oncologist. Family History: mother: breast and ovarian cancer, of brain tumor father: lung cancer Surgical history: 1. Bilateral mastectomy with immediate subpectoral implant reconstruction 2. Appendectomy 3. Left knee surgery 4. 3 back surgeries Medical history: Asthma stage IIIA kidney failure Social history: Smoke: Stopped in 2016 Alcohol: Negative Drugs: Negative ROS: HEENT: Former smoker otherwise negative Lungs: Asthma Heart: Negative GI:spot on her liver : following with kidney specialist Musculoskeletal: Arthritis Psychiatric: Negative ALLERGIES: Seasonal Skin:none Hematologic: Negative Objective - Vital Signs Vital signs: Vital Signs Temp 98.2 F 09/09/19 11:23 Pulse 99 09/09/19 11:23 Resp 20 09/09/19 11:23 BP 124/78 09/09/19 11:23 Pulse Ox 97 09/09/19 11:23 Intake & Output 09/08/19 09/09/19 09/09/19 18:59 06:59 18:59 Weight 82.554 kg - Exam BMI 26.9 - Constitutional General appearance: Present: average body habitus - EENT Eyes: Present: EOMI ENT: Present: hearing grossly normal - Respiratory Respiratory: bilateral: CTA - Cardiovascular Rhythm: regular Heart sounds: normal: S1, S2 - Gastrointestinal General gastrointestinal: Present: normal bowel sounds, soft - Integumentary Integumentary: Present: normal turgor - Musculoskeletal Musculoskeletal: Present: gait normal - Psychiatric Psychiatric: Present: A&O x's 3, appropriate affect, intact judgment & insight - Additional findings Additional findings: breast exam: Scars bilateral chest from mastectomy and reconstruction Right chest wall: No evidence of cancer Right axilla: No adenopathy of concern Left chest wall: No evidence of cancer Left axilla: No adenopathy of concern Assessment and Plan Assessment: Impression: 1. Stage 0 right breast cancer, no evidence of recurrence 2. Chest wall bilateral no evidence of cancer or just sees of concern 3. Kidney failure followed. Nephrology 4. Liver lesion followed by GI 5. Recent [employer] abnormality followed by [employer] and has an appointment with a [employer] oncologist Plan: 1. Follow. 6 minutes time related to her breast 2. Continued medical care as above CC: DR. Sanders encounter 20 minutes, > 50% of time in planning and counselling
== END | disposition home or self-care (01) ==
LOC: WWCWWP 11:16
PROVIDERS: ATTEND Surgery
DX: Z53.9 Procedure and treatment not carried out, unspecified reason (principal)

== ENCOUNTER → 2020-11-16 | Outpatient (CLI) | payer MEDICARE ==
--- NOTE | 2020-11-16 12:25 | XR ---
EXAMINATION TYPE: XR chest 2V DATE OF EXAM: 11/16/2020 COMPARISON: 06/06/2018 HISTORY: Shortness of breath TECHNIQUE: Frontal and lateral views of the chest are obtained. FINDINGS: Scattered senescent parenchymal changes noted. Hyperinflation compatible with COPD. No evidence for infiltrate. No evidence for atelectasis. Heart size is stable. Mediastinal structures are stable and grossly unremarkable. No evidence for hilar prominence. Degenerative changes dorsal spine. IMPRESSION: 1. No evidence for acute pulmonary disease.
== END | disposition home or self-care (01) ==
LOC: LABWHC1 11:48
PROVIDERS: ATTEND Internal Medicine
DX: R05 Cough (principal)
CPT/HCPCS: 71046

== ENCOUNTER → 2021-04-20 | Outpatient (CLI) | payer MEDICARE ==
[2021-04-20 10:58] VITALS: BP 151/82; PULSE 62; RESP 16; TEMP 97.8
--- NOTE | 2021-04-20 11:15 | P.PN ---
Subjective Progress Note Date: 04/20/21 Principal diagnosis: stage 0 right breast cancer right breast stage 0 cancer Adrianna is a 61-year-old white female status post bilateral mastectomy with immediate reconstruction on . Pathology revealed right breast DCIS and 2 sentinel nodes were negative for metastatic disease. The left breast was negative for malignancy. She had immediate bilateral subpectoral implant reconstruction. She has been seen by medical oncology and does not need any hormonal or chemotherapy. She does not need any radiation therapy. Her tumor was a TisN0 M0 ER/[place] -, Grade 3. the patient finished her reconstruction and is very satisfied with it. Her breast were 38DDD prior to the surgery. She does complain of some discomfort at the lateral aspect of the right chest wall. She is also complaining of some pain over the left chest wall. She is not complaining of any lumps daniel or nodules in her breast. The patient has stage IIIA kidney failure. She She also has a spot noted on her liver, follows with urology yearly. She is al followed by GI once a year regarding a liver lesion. She had a prop maker appointment with Laurence Bhatt and she was told she had a lesion on her tubes and she waa sent to a prop maker oncologist who ruled out cancer and now follows with Dr. Bhatt. She is scheduled to have a left knee revision of a knee replacement. Family History: mother: breast and ovarian cancer, of brain tumor father: lung cancer Surgical history: 1. Bilateral mastectomy with immediate subpectoral implant reconstruction 2. Appendectomy 3. Left knee surgery 4. 3 back surgeries 5. appy Medical history: Asthma stage IIIA kidney failure Social history: Smoke: Stopped in 2016 Alcohol: Negative Drugs: Negative ROS: HEENT: Former smoker otherwise negative Lungs: Asthma Heart: Negative GI:spot on her liver : following with kidney specialist Musculoskeletal: Arthritis Psychiatric: Negative ALLERGIES: Seasonal Skin:none Hematologic: Negative Objective - Vital Signs Vital signs: Vital Signs Temp 97.8 F 04/20/21 10:52 Pulse 62 04/20/21 10:52 Resp 16 04/20/21 10:52 BP 151/82 04/20/21 10:52 Pulse Ox Intake & Output 04/19/21 04/20/21 04/20/21 18:59 06:59 18:59 Weight 79.379 kg - Constitutional General appearance: Present: cooperative - EENT Eyes: Present: EOMI ENT: Present: hearing grossly normal - Neck Neck: Present: normal ROM - Respiratory Respiratory: bilateral: wheezing - Cardiovascular Rhythm: regular Heart sounds: normal: S1, S2 - Gastrointestinal General gastrointestinal: Present: soft - Integumentary Integumentary: Present: normal - Psychiatric Psychiatric: Present: A&O x's 3, appropriate affect, intact judgment & insight - Additional findings Additional findings: Breast Exam: BRA: XL sports bra inspection: asymetry related to bilateral breast reconstrction Palpation: Right breast: Patient status post mastectomy and has right subpectoral implant reconstruction no evidence of any lesions of concern on palpation Right axilla: No adenopathy of concern Left breast: Patient status post mastectomy and right implant reconstruction no evidence of any lesions of concern on palpation Left axilla: No adenopathy of concern Assessment and Plan Assessment: Impression: Asthma stage IIIA kidney failure Status post bilateral mastectomies and subpectoral implant reconstruction for s tage 0 right breast cancer no evidence of any recurrent disease Plan: Repeat physician exam in 6 months CC: Dr. Sanders
== END | disposition home or self-care (01) ==
LOC: WWCWWP 10:18
PROVIDERS: ATTEND Surgery
DX: Z53.9 Procedure and treatment not carried out, unspecified reason (principal)

== ENCOUNTER → 2023-02-06 | Outpatient (CLI) | payer MEDICARE ==
[2023-02-06 11:08] VITALS: BP 136/85; PULSE 91; RESP 18; TEMP 98.1
--- NOTE | 2023-02-06 11:20 | P.PN ---
Subjective Progress Note Date: 02/06/23 right breast stage 0 cancer Adrianna is a 62-year-old white female status post bilateral mastectomy with immediate reconstruction on . Pathology revealed right breast DCIS and 2 sentinel nodes were negative for metastatic disease. The left breast was negative for malignancy. She had immediate bilateral subpectoral implant reconstruction. She has been seen by medical oncology and does not need any hormonal or chemotherapy. She does not need any radiation therapy. Her tumor was a TisN0 M0 ER/[place] -, Grade 3. the patient finished her reconstruction and is very satisfied with it. Her breast were 38DDD prior to the surgery. She does complain of some discomfort at the lateral aspect of the left chest wall which has not changed. He states at times it feels like the implant on the left is throbbing on her left chest wall. She is not complaining of any lumps daniel or nodules in her breast. The patient has stage IIIA kidney failure. She is followed by nephrology and at this time the area just watching this. She She also has a spot noted on her liver, follows with GI yearly. She is al followed by GI once a year regarding a liver lesion. She had a disability attorney appointment with Laurence Bhatt and she was told she had a lesion on her tubes and she was sent to a disability attorney oncologist who ruled out cancer and now follows with Dr. Bhatt. The lesion was removed and was benign. The patient fractured her left ankle last year. Family History: mother: breast and ovarian cancer, of brain tumor father: lung cancer Surgical history: 1. Bilateral mastectomy with immediate subpectoral implant reconstruction 2. Appendectomy 3. Left knee surgery 4. 3 back surgeries 5. appy 6. left knee revision 7. Lesion removed from her fallopian tube which was benign Medical history: Asthma stage IIIA kidney failure Social history: Smoke: Stopped in 2017 Alcohol: Negative Drugs: Negative ROS: HEENT: Former smoker otherwise negative Lungs: Asthma Heart: Negative GI:spot on her liver : following with kidney specialist Musculoskeletal: Arthritis Psychiatric: Negative ALLERGIES: Seasonal Skin:none Hematologic: Negative Objective - Vital Signs Vital signs: Vital Signs Temp 98.1 F 02/06/23 11:04 Pulse 91 02/06/23 11:04 Resp 18 02/06/23 11:04 BP 136/85 02/06/23 11:04 Pulse Ox 98 02/06/23 11:04 FiO2 Intake & Output 02/05/23 02/06/23 02/06/23 18:59 06:59 18:59 Weight 82.1 kg - Constitutional General appearance: Present: cooperative - EENT Eyes: Present: EOMI ENT: Present: hearing grossly normal - Neck Neck: Present: normal ROM - Respiratory Respiratory: bilateral: CTA - Cardiovascular Rhythm: regular Heart sounds: normal: S1, S2 - Integumentary Integumentary: Present: normal turgor - Musculoskeletal Musculoskeletal: Present: gait normal - Psychiatric Psychiatric: Present: A&O x's 3, appropriate affect, intact judgment & insight - Additional findings Additional findings: Breast Exam: BRA: XL sports bra inspection: asymetry related to bilateral breast reconstrction Palpation: Right breast: Patient status post mastectomy and has right subpectoral implant reconstruction no evidence of any lesions of concern on palpation Right axilla: No adenopathy of concern Left breast: Patient status post mastectomy and right implant reconstruction no evidence of any lesions of concern on palpation Left axilla: No adenopathy of concern Assessment and Plan Assessment: Impression: Asthma stage IIIA kidney failure Status post bilateral mastectomies and subpectoral implant reconstruction for stage 0 right breast cancer no evidence of any recurrent disease Plan: Repeat physician exam in 6 months CC: Dr. Chambers
== END ==
LOC: WWCWWP 10:57
PROVIDERS: ATTEND Surgery
DX: C50.911 Malignant neoplasm of unspecified site of right female breast (principal); J45.909 Unspecified asthma, uncomplicated; Z90.13 Acquired absence of bilateral breasts and nipples; N18.30 Chronic kidney disease, stage 3 unspecified; Z87.891 Personal history of nicotine dependence; Z88.8 Allergy status to other drugs, medicaments and biological substances; Z91.041 Radiographic dye allergy status; Z17.1 Estrogen receptor negative status [ER-]; Z88.0 Allergy status to penicillin; Z91.048 Other nonmedicinal substance allergy status; Z88.1 Allergy status to other antibiotic agents; Z79.899 Other long term (current) drug therapy

== ENCOUNTER → 2023-08-08 | Outpatient (CLI) | payer MEDICARE ==
--- NOTE | 2023-08-08 12:38 | P.PN ---
Subjective Progress Note Date: 08/08/23 08-08-23 right breast stage 0 cancer, 2018 Adrianna is a 63-year-old white female status post bilateral mastectomy with immediate reconstruction on . Pathology revealed right breast DCIS and 2 sentinel nodes were negative for metastatic disease. The left breast was negative for malignancy. She had immediate bilateral subpectoral implant reconstruction. She has been seen by medical oncology and does not need any hormonal or chemotherapy. She does not need any radiation therapy. Her tumor was a TisN0 M0 ER/[place] -, Grade 3. the patient finished her reconstruction and is very satisfied with it. Her breast were 38DDD prior to the surgery. She did complain of some discomfort at the lateral aspect of the left chest wall which has resolved. She is not complaining of any lumps daniel or nodules in her breast. The patient has stage IIIA kidney failure. She is followed by nephrology and at this time they are just watching this. She also has a spot noted on her liver, follows with GI yearly. She is also followed by GI once a year regarding a liver lesion. She had a electrical timing device calibrator appointment with Laurence Bhatt and she was told she had a lesion on her tubes and she was sent to a electrical timing device calibrator oncologist who ruled out cancer and now follows with Dr. Bhatt. The lesion was removed and was benign. The patient fractured her left ankle last year. Family History: mother: breast and ovarian cancer, of brain tumor father: lung cancer Surgical history: 1. Bilateral mastectomy with immediate subpectoral implant reconstruction 2. Appendectomy 3. Left knee surgery 4. 3 back surgeries 5. appy 6. left knee revision 7. Lesion removed from her fallopian tube which was benign 8. cataract, detached retina same eye Medical history: Asthma stage IIIA kidney failure Social history: Smoke: Stopped in 2016 Alcohol: Negative Drugs: Negative ROS: HEENT: Former smoker otherwise negative Lungs: Asthma Heart: Negative GI:spot on her liver : following with kidney specialist Musculoskeletal: Arthritis Psychiatric: Negative ALLERGIES: Seasonal Skin:none Hematologic: Negative Objective - Constitutional General appearance: Present: cooperative - EENT Eyes: Present: EOMI ENT: Present: hearing grossly normal - Neck Neck: Present: normal ROM - Respiratory Respiratory: bilateral: CTA - Cardiovascular Heart sounds: normal: S1, S2 - Integumentary Integumentary: Present: normal turgor - Musculoskeletal Musculoskeletal Comment(s): uses a cane drop foot - Psychiatric Psychiatric: Present: A&O x's 3, appropriate affect, intact judgment & insight - Additional findings Additional findings: Breast Exam: BRA: XL sports bra inspection: asymmetry related to bilateral breast reconstruction Palpation: Right breast: Patient status post mastectomy and has right subpectoral implant reconstruction no evidence of any lesions of concern on palpation Right axilla: No adenopathy of concern Left breast: Patient status post mastectomy and left implant reconstruction no evidence of any lesions of concern on palpation Left axilla: No adenopathy of concern Assessment and Plan Assessment: Impression: Asthma stage IIIA kidney failure Status post bilateral mastectomies and subpectoral implant reconstruction for stage 0 right breast cancer no evidence of any recurrent disease Plan: Repeat physician exam in 6 months No need for any radiographic evaluation as she has had bilateral mastectomies, we have discussed potential MRI of the chest however at this time on physical exam there is nothing of concern CC: Dr. Chambers
[2023-08-08 13:40] VITALS: BP 123/79; PULSE 92; RESP 16; TEMP 98.2
== END ==
LOC: WWCWWP 10:50
PROVIDERS: ATTEND Surgery
DX: C50.911 Malignant neoplasm of unspecified site of right female breast (principal); J45.909 Unspecified asthma, uncomplicated; N19 Unspecified kidney failure; Z90.13 Acquired absence of bilateral breasts and nipples; Z87.891 Personal history of nicotine dependence; Z80.3 Family history of malignant neoplasm of breast; Z17.1 Estrogen receptor negative status [ER-]; Z88.5 Allergy status to narcotic agent; Z91.041 Radiographic dye allergy status; Z88.0 Allergy status to penicillin; Z91.048 Other nonmedicinal substance allergy status; Z88.8 Allergy status to other drugs, medicaments and biological substances; Z79.899 Other long term (current) drug therapy; Z79.51 Long term (current) use of inhaled steroids